=== PATIENT | female | born 1965 | race Caucasian/White ===

== ENCOUNTER → 2021-07-08 11:08 | Outpatient (CLI) | payer OTHER, SELFPAY | PROVIDERS: PCP Nurse Practitioner Primary Care; Visit Provider Family Medicine | DX: Z23 Encounter for immunization (principal) | CPT/HCPCS: 0004A; 91300 ==

== ENCOUNTER → 2021-08-13 15:58 | Outpatient (CLI) | payer OTHER, SELFPAY ==
--- NOTE | 2021-08-13 16:00 | BI_ITS ---
MAMMOGRAPHY - BILATERAL SCREENING REASON FOR EXAM: Female, 55 years old. Routine annual screening examination. PERTINENT HISTORY: Grandmother with breast cancer. Bilateral breast implants. TECHNIQUE: Digital bilateral breast anahi (3D mammographic acquisition) in the CC and MLO projections. 2-D mediolateral oblique (MLO) and craniocaudad (CC) views of both breasts were obtained. CAD: Full Field Digital Mammography with Computer Added Detection was performed. COMPARISON: No comparison mammograms available at this time. If any prior films become available, an addendum to this report can be generated. FINDINGS: Breast Composition: There are scattered areas of fibroglandular density. There are no dominant masses or suspicious calcifications. Bilateral breast implants are seen. No other significant abnormalities are identified. BI/SCRN MAMM (CAD)W/ANAHI BILAT IMPRESSION: Negative screening mammogram. Yearly followup mammogram recommended. (A) ASSESSMENT CATEGORY: BIRADS Category 2: Benign. A letter regarding these results will be sent to the patient by the facility within 30 days. Approximately 10% of breast cancers are not detected by mammography. A normal mammogram should not delay biopsy of a clinically suspicious abnormality. [id number] Electronically Signed: Lawrence Al MD at 10:02 EST , Service support ,
== END ==
PROVIDERS: PCP Nurse Practitioner Primary Care; Visit Provider Internal Medicine
DX: Z12.31 Encounter for screening mammogram for malignant neoplasm of breast (principal)
CPT/HCPCS: 77063; 77067

== ENCOUNTER → 2021-08-26 12:50 | Outpatient (CLI) | payer OTHER, SELFPAY ==
--- NOTE | 2021-08-26 12:52 | EKG12_ITS ---
Test Reason : HTN Blood Pressure : / mmHG Vent. Rate : 085 BPM Atrial Rate : 085 BPM P-R Int : 158 ms QRS Dur : 080 ms QT Int : 372 ms P-R-T Axes : 063 046 033 degrees QTc Int : 442 ms Sinus rhythm with occasional Premature ventricular complexes Septal infarct , age undetermined Abnormal ECG Confirmed by MITRA KRAUSE, RIDGE ([id number]), legal editor BALTAZAR ESPINO ([id number]) on 09/09/2021 10:31:56 AM Referred By: Dania Rubalcava Confirmed By:RIDGE MANRIQUEZ MD
== END ==
PROVIDERS: PCP Internal Medicine; Referring Provider Internal Medicine; Visit Provider Internal Medicine
DX: I10 Essential (primary) hypertension (principal); E78.5 Hyperlipidemia, unspecified
CPT/HCPCS: 93005

== ENCOUNTER 2021-09-28 11:59 | Outpatient (CLI) | payer OTHER, SELFPAY ==
--- NOTE | 2021-09-28 12:51 | STRESSREP ---
Stress Test Report Exercise stress test. 56-year-old lady with a history of abnormal EKG. Medications amlodipine. Stress protocol: Resting EKG demonstrates normal sinus rhythm with a rate of 89 bpm normal intervals are noted resting blood pressure is 152/94 mmHg. The patient exercised according to regular Robby protocol for total duration of 10 minutes completing 1 minute into stage IV of the Robby protocol. The maximum heart rate attained was 166 bpm which was 101% of max impact at heart rate the maximum workload was 13.4 metabolic equivalents. At rest there were no ST or T wave changes noted to suggest ischemia and at peak exercise upsloping ST changes only were noted with did not meet the criteria for ischemia. Occasional premature ventricular complexes were noted. No clinical angina was noted the test was terminated due to attainment of target heart rate. The peak blood pressure was 190/88 mmHg. Conclusion: Exercise stress test with no EKG criteria for ischemia at a high workload. Excellent functional aerobic capacity. No clinical angina noted.
== END 2021-09-28 23:59 | disposition short-term general hospital (02) ==
LOC: CVS 12:02
PROVIDERS: PCP Internal Medicine; Referring Provider Internal Medicine; Visit Provider Internal Medicine
DX: I10 Essential (primary) hypertension (principal); R94.31 Abnormal electrocardiogram [ECG] [EKG]
CPT/HCPCS: 93017

== ENCOUNTER 2021-10-02 07:31 | Day surgery (SDC) | payer OTHER, SELFPAY ==
[2021-10-02] VITALS (7 sets, daily range): BP systolic 94–144; BP diastolic 53–97; PULSE 69–91; RESP 14–16; TEMP 36.4–37.1; O2SAT 100; BMI 24.7
[2021-10-02] MEDS: Lactated Ringers 1,000 ML 15 ML IV (08:19)
--- NOTE | 2021-10-02 08:38 | H&P.OPEN ---
HPI - General HPI Narrative RAMAN MARTINEZ, is a 56 F who presents for screening colonoscopy. The patient is never had a colonoscopy in the past. She reports no family history of colon cancer. She denies any abdominal pain or blood in her stool. [facility], LAT[facility] Medical History (Updated 09/28/21 @ 15:45 by Vanita Cochran) Abnormal EKG Alcohol use Anxiety Colon cancer screening Depression Former smoker Health care maintenance High cholesterol History of anemia History of stress test Hyperlipemia Hyperlipidemia Hypertension Migraines Preventative health care Wears contact lenses Wears glasses Home Medications magnesium 200 mg tablet 200 mg PO DAILY 07/21/21 [History Last Taken Unknown] multivitamin 1 tab PO DAILY 07/21/21 [History Last Taken Unknown] amlodipine 5 mg tablet 5 mg PO DAILY #90 tab 08/25/21 [Rx Last Taken 10/02/21 07:00] calcium carbonate 600 mg calcium (1,500 mg) tablet 600 mg PO DAILY 08/25/21 [History Last Taken Unknown] Allergy/AdvReac Type Severity Reaction Status Date / Time Sulfa (Sulfonamide Allergy Severe sick Verified 08/25/21 13:58 Antibiotics) Family History Other Arthritis Breast cancer Heart disease Hyperlipemia Hypertension Surgical History (Updated 09/28/21 @ 15:40 by Vanita Cochran) History of breast augmentation History of knee surgery History of tubal ligation Hx of LASIK Social History Smoking Status: Former smoker how long ago did patient quit smokin alcohol intake: current alcohol intake frequency: 0-2 drinks per day Alcohol type: wine substance use type: does not use what type of physical activity do you participate in: none Past Medical/Surgical History Planned Operation Planned Operative Procedure/s: COLONOSCOPY Previous Hospitalizations/Surgeries HX Hospitalizations: No Any Problems With Anesthesia: No You/Your Family Experience Fever (Hyperthermia) With Anes: No Cholinesterase deficiency: No Cardiovascular Hx Hypertension: Yes Respiratory Hx Sleep Apnea: No Hx Respiratory Tract Infection/Cold (presently): No Do You Snore Loudly (louder than talking or can be heard): No Do You Often Feel Tired/ Fatigued/ Sleepy Dring Daytime?: No Has Anyone Observed You Stop Breathing During Sleep?: No Result (for STOP score): Negative Smoking Status: Former smoker Neurological Does patient have nerve stimulator: No Reproduction : No Allergies Sulfa (Sulfonamide Antibiotics) Allergy (Severe, Verified 08/25/21 13:58) sick Discharge Is Pt Admitted From a Penitentiary, or a Longterm: No After D/C, Where Do you Plan to Go: Return Home Vital Signs Vital Signs Vital Signs: 10/02/21 08:09 Temperature 98.4 F Temperature Source Temporal Pulse Rate 91 Respiratory Rate 16 Respiratory Pattern Normal Blood Pressure 144/97 H Blood Pressure Mean 112 Blood Pressure Source Monitor Blood Pressure Position Sitting Blood Pressure Location Right Arm Pulse Ox 100 Oxygen Delivery Method Room Air Weight Weight: 156 lb 8.451 oz Body Mass Index (BMI) 24.7 Physical Exam Const alert and oriented x3 Resp normal respiratory effort and normal air movement Cardio regular rate and regular rhythm GI soft to palpation, non-tender and non-distended Assessment & Plan Assessment/Plan (1) Colon cancer screening: PLAN: I explained endoscopy in detail to the patient. I explained the risks including but not limited to stroke or heart attack with anesthesia, perforation of the GI tract, bleeding, infection. I explained that any of these could necessitate further emergency surgery. The patient understands and all questions were answered sufficiently. The patient wishes to proceed with procedure. Gavin Giles MD Pager: [facility] [address] [place] [address], [address] [place] [address] Office: Surgery Risks - Colonoscopy Risks Include but are not Limited To: Risks include but are not limited to: Bleeding, perforation requiring further surgery, inability to complete colonoscopy requiring barium enema.
--- NOTE | 2021-10-02 09:08 | OP.COLON_ITS ---
Patient Name: Chayo Powell Procedure Date: 10/02/2021 8:41 AM Date of : 1965 Age: 56 Procedure: Colonoscopy Indications: Screening for colorectal malignant neoplasm Providers: Gavin Giles MD Referring MD: Dania Rubalcava MD Medicines: Monitored Anesthesia Care Patient Profile: This is a 56 year old female. Refer to note in patient chart for documentation of history and physical. Last Colonoscopy: none. The patient's first colonoscopy is today. Complications: No immediate complications. Procedure: Pre-Anesthesia Assessment: - Prior to the procedure, a History and Physical was performed, and patient medications and allergies were reviewed. The patient's tolerance of previous anesthesia was also reviewed. The risks and benefits of the procedure and the sedation options and risks were discussed with the patient. All questions were answered, and informed consent was obtained. Prior Anticoagulants: The patient has taken no previous anticoagulant or antiplatelet agents. After reviewing the risks and benefits, the patient was deemed in satisfactory condition to undergo the procedure. After I obtained informed consent, the scope was passed under direct vision. Throughout the procedure, the patient's blood pressure, pulse, and oxygen saturations were monitored continuously. The Colonoscope was introduced through the anus and advanced to the cecum, identified by appendiceal orifice and ileocecal valve. The colonoscopy was performed without difficulty. The patient tolerated the procedure well. The quality of the bowel preparation was good. Scope In: 8:52:51 AM Scope Withdrawal Time 0 hours 6 minutes 5 seconds Scope Out: 9:05:03 AM Total Procedure Duration Time 0 hours 12 minutes 12 seconds Findings: The entire examined colon appeared normal on direct and retroflexion views. Impression: - The entire examined colon is normal on direct and retroflexion views. - No specimens collected. Recommendation: - Discharge patient to home. - Resume previous diet. - Continue present medications. - Repeat colonoscopy in 10 years for screening purposes. Procedure Code(s): --- Professional --- 04706, Colonoscopy, flexible; diagnostic, including collection of specimen(s) by brushing or washing, when performed (separate procedure) Diagnosis Code(s): --- Professional --- Z12.11, Encounter for screening for malignant neoplasm of colon CPT copyright 2017 [employer]. All rights reserved. The codes documented in this report are preliminary and upon development coach review may be revised to meet current compliance requirements. Gavin Giles MD 10/02/2021 9:08:24 AM This report has been signed electronically. Number of Addenda: 0 Note Initiated On: 10/02/2021 8:41 AM
--- NOTE | 2021-10-02 09:09 | OP.CCLET_ITS ---
10/02/2021 Dania Rubalcava MD [address] [place] [address] [place] [address] Re : Colonoscopy procedure for Chayo Powell Dear Dr. Rubalcava This procedure was performed on Saturday, October 02, 2021. My impressions and recommendations are as follows: Impressions : - The entire examined colon is normal on direct and retroflexion views. - No specimens collected. Recommendations : - Discharge patient to home. - Resume previous diet. - Continue present medications. - Repeat colonoscopy in 10 years for screening purposes. My findings are described in the full procedure note, which is enclosed. If I can be of further assistance, please feel free to contact me at Doctor phone number(s): , Work: . Sincerely, Gavin Giles MD 10/02/2021 9:08:24 AM This report has been signed electronically.
== END 2021-10-02 23:59 | disposition home or self-care (01) ==
LOC: EN 07:32 → AC 07:34
PROVIDERS: PCP Internal Medicine; Referring Provider Internal Medicine; Visit Provider Surgery
PROC: 0DJD8ZZ Inspection of Lower Intestinal Tract, Via Natural or Artificial Opening Endoscopic (ICD-10-PCS; CPT 45378; principal; 2021-10-02 08:25)
DX: Z12.11 Encounter for screening for malignant neoplasm of colon (principal); I10 Essential (primary) hypertension; E78.00 Pure hypercholesterolemia, unspecified; E78.5 Hyperlipidemia, unspecified; Z87.891 Personal history of nicotine dependence
CPT/HCPCS: 45378; J7120; J2405

== ENCOUNTER 2021-11-16 16:44 | Outpatient (CLI) | payer OTHER, SELFPAY ==
[2021-11-22 12:42] LABS: HPV APTIMA, High Risk Negative (Negative)
== END 2021-11-16 23:59 | disposition home or self-care (01) ==
LOC: LABSPEC 16:46
PROVIDERS: PCP Internal Medicine; Referring Provider Nurse Practitioner Women's Health; Visit Provider Nurse Practitioner Women's Health
DX: Z78.0 Asymptomatic menopausal state (principal); Z12.4 Encounter for screening for malignant neoplasm of cervix
CPT/HCPCS: 87624; 88175; G0145

== ENCOUNTER → 2021-11-18 08:03 | Outpatient (CLI) | payer OTHER, SELFPAY ==
--- NOTE | 2021-11-18 08:05 | ECHOD_ITS ---
Reason For Study: ABN EKG, HTN, TACHYCARDIA Procedure This was a 2D Doppler, Color Flow transthoracic echocardiogram. Exam performed in department. Left Ventricle Normal LV size. Left ventricular systolic function is normal. The estimated ejection fraction is 64 %. Stage 1 diastolic dysfunction. No regional wall motion abnormalities noted. Right Ventricle Normal RV size. Normal systolic function. Atria Normal left atrium. Normal right atrium. Mitral Valve Normal mitral valve. Tricuspid Valve Normal tricuspid valve. Mild tricuspid valve insufficiency. Pulmonary artery systolic pressure is 30 mmHg. Aortic Valve Normal aortic valve. Trisinus/trileaflet aortic valve. Pulmonic Valve Normal pulmonic valve. Great Vessels Normal aortic root. Pericardium/Pleural No pericardial effusion. MMode/2D Measurements & Calculations LVIDd: 4.0 cm IVSd: 0.89 cm Ao root diam: 3.1 cm LVIDs: 2.7 cm LVPWd: 1.00 cm RVDd: 3.1 cm FS: 33.4 % LAV(MOD-bp): 51.4 ml LA A4 area: 15.3 cm2 LA dimension(2D): 3.5 cm LAV(MOD-bp) Indexed: 28.1 ml/m2 LAV(MOD-sp2): 48.6 ml LAV(MOD-sp4): 43.5 ml RA A4 area: 15.6 cm2 Time Measurements MV dec time: 0.22 sec Doppler Measurements & Calculations MV E max noah: 49.2 cm/sec Lat Peak E' Noah: 6.7 cm/sec Med Peak E' Noah: 5.4 cm/sec MV A max noah: 64.6 cm/sec E/E' lat: 7.3 E/E' med: 9.2 MV E/A: 0.76 Ao V2 max: 104.7 cm/sec LV V1 max: 84.7 cm/sec PA V2 max: 74.9 cm/sec Ao max P.4 mmHg LV V1 max P.9 mmHg TR max noah: 253.6 cm/sec TR max P.7 mmHg ECHO/Echo Complete Interpretation Summary Normal LV size. Left ventricular systolic function is normal. The estimated ejection fraction is 64 %. Stage 1 diastolic dysfunction. Mild tricuspid valve insufficiency. Pulmonary artery systolic pressure is 30 mmHg. Ordering Physician: ZA DELANEY Referring Physician: Dania Rubalcava Performed By: Madalyn Blair RDCS, RVT
== END ==
PROVIDERS: PCP Internal Medicine
DX: R94.31 Abnormal electrocardiogram [ECG] [EKG] (principal); R00.0 Tachycardia, unspecified; I10 Essential (primary) hypertension
CPT/HCPCS: 93306

== ENCOUNTER → 2022-02-19 | Outpatient (CLI) | payer OTHER, SELFPAY ==
[2022-02-19 15:46] LABS: Vitamin B12 272 pg/mL (211-911); Vitamin D,25 Hydroxy 46.5 ng/mL
[2022-02-19 16:00] LABS: T4 Free Direct 0.82 ng/dL (0.76-1.46)
== END | disposition home or self-care (01) ==
LOC: BIMLAB 13:39
PROVIDERS: PCP Internal Medicine; Referring Provider Internal Medicine; Visit Provider Internal Medicine
DX: F41.9 Anxiety disorder, unspecified (principal); F32.A Depression, unspecified
CPT/HCPCS: 36415; 82306; 82607; 84439; 84443

== ENCOUNTER 2022-06-23 14:00 | Outpatient (RCR) | payer OTHER, SELFPAY ==
--- NOTE | 2022-05-31 08:52 | HP.PTEVAL_ITS ---
Patient's Visit Information RAMAN MARTINEZ is a 56 year old F referred to Physical Therapy by Dr. Dania Rubalcava MD with a diagnosis of piriformis suyndrome, sciatica. Date of Evaluation: 05/31/22 Physical Therapist: Phoenix Gates, DPT, OCS, CSCS - Visit Plan Frequency: 3x /Week Duration: 4-6 Weeks Plan: 3x/week for 3-4 week... 1. rollout and stretch quads into psoas. 2. NS based core strength mat to gym NS functional ex. 3. yoga flow rosa elena pose, down dog, up dog include cat /cow. TENS with MH if needed. - Subjective I have been having problems in LB for months now. It is intermittently up and down. She woke up one day in [place] in meetings all day and got worse and worse. Tried yoga which helped. Tried massage which made it worse. Pain is R posterior hip and lateral leg to petty. Also R side of low back. Has not had x rays yet but has order. Pain in last two weeks is constant 1-2/10 and can get up to 7/10 yesterday after a lot of walking tuesday at [employer] homecoming. Lots of sitting makes her worse. Getting up in am can be problematic if she doesn't stretch in bed. No numbness or tingling. No bowel or bladder problems. Sleep is OK for the most part. Is on alleve daily. 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 Hobbies include walking which she has had to stop. Read is OK - Pain R LB and leg Pain Intensity (Out of 10): 1 Pain Intensity Range: 1, 7 - Objective Walks normal into PT and I, trasnfers I without pain increase. Posture is flat lordosis and forward head, kyphosis in t/s. Tender to touch R trochanter and piriformis area. LB AROM ext max limited and painful, B SB are OK, flexion is painful R hip. + SLR adn slump SLR. flexibility pirirformis and ITB R slight deficits vs L. Hip flexors tight B. reflexes 2/3 patella and achilles. Sensatin LE WNL to gross light touch. Strength LE 4 in hips and 4+ knees and ankles without myotomal problems. repeated motions 1/10 baseline back and hip. PPU increase pain in LE after. ailin: Better. - Balance/Special Test Scores Lower Extremity Functional Score: 51 - Goals Goal 1:: Painfree at rest. Goal Time Frame: 4-6 Weeks Goal 2:: Pt feel 90% better adn 1/10 pain at worst Goal Time Frame: 4-6 Weeks Goal 3:: Able to ambulate 2 miles and work without increased pain Goal Time Frame: 4-6 Weeks Goal 4:: I management of condition Goal Time Frame: 4-6 Weeks - Rehabilitation Potential Physical Therapy Diagnosis: Degenerative changes leading to back and leg pain. Rehabilitation Potential: Fair - Anticipated Interventions Patient/Client Instruction: Educate patient on: Condition, Plan of Care For the Purpose of:: To decrease pain, To increase ROM, To improve muscle performance and motor function, To increase tolerance to activity/condition/position, To improve ability of physical actions for home/community/work/leisure Therapeutic Exercise to Include: Strength training, Flexibilty training, Passive ROM, Active ROM For the Purpose of:: To decrease pain, To increase ROM, To increase tolerance to activity/condition/position, To improve ability of physical actions for home/community/work/leisure, To improve gait and locomotor functions Manual Therapy Techniques to Include: Mobilization, Passive ROM, Soft tissue mobilization For the Purpose of:: To decrease pain, To increase ROM, To improve muscle performance and motor function TENS: Yes Thermo therapy (hot pack): Yes For the Purpose of:: To decrease pain Thank you for the opportunity to evaluate your patient. For Medicare and Medicare HMO plans, please review the plan of care and approve it. It will need to be FAXED BACK to us at [phone] for Medicare purposes. For Medicare only, by signing this I certify the plan of care. Please let me know if there are questions or concerns regarding this plan of care. Physician Signature: Date:
--- NOTE | 2022-07-30 13:49 | HP.PTDCNRP_ITS ---
RAMAN MARTINEZ was seen in my office for initial evaluation on 05/31/22. The following Plan of Care was established for this patient: Initial Frequency: 3x /Week Initial Duration: 4-6 Weeks Patient/Client Instruction: Educate patient on: Condition, Plan of Care For the Purpose of:: To decrease pain, To increase ROM, To improve muscle performance and motor function, To increase tolerance to activity/condition/position, To improve ability of physical actions for home/community/work/leisure Therapeutic Exercise to Include: Strength training, Flexibilty training, Passive ROM, Active ROM For the Purpose of:: To decrease pain, To increase ROM, To increase tolerance to activity/condition/position, To improve ability of physical actions for home/community/work/leisure, To improve gait and locomotor functions Manual Therapy Techniques to Include: Mobilization, Passive ROM, Soft tissue mobilization For the Purpose of:: To decrease pain, To increase ROM, To improve muscle p erformance and motor function TENS: Yes Thermo therapy (hot pack): Yes For the Purpose of:: To decrease pain This patient was last seen in our office 06/23/22. Pertinent comments regarding their Physical therapy will appear below: Pt seen 9 visits of POC and was 85% better overall. She was to go onvacation a nd f/u for recheck after vacation but cancelled that visit as she was doing well. i will discontinue her from my care at this time. At this point I will be discontinuing this patient from physical therapy. I would be happy to see this patient again in the future if found appropriate by the physician. Thank you! Phoenix Gates, DPT, OCS, CSCS Balance/Gait/Functional tests - Balance/Special Test Scores Lower Extremity Functional Score: 71
== END 2022-06-23 19:00 | disposition home or self-care (01) ==
LOC: PT 14:00
PROVIDERS: PCP Internal Medicine; Referring Provider Internal Medicine; Visit Provider Internal Medicine
DX: G57.01 Lesion of sciatic nerve, right lower limb
CPT/HCPCS: 97014; 97110; 97161; G0283

== ENCOUNTER → 2023-03-07 | Outpatient (CLI) | payer OTHER, SELFPAY ==
[2023-03-07 12:35] LABS: Absolute Lymphocyte Count 0.91 X10^3/uL (0.83-4.51); Absolute Neutrophil Count 1.6 X10^3/uL (2.0-7.7); Basophil# 0.05 X10^3/uL; Basophil% 1.6 % (0-1); Eosinophil# 0.13 X10^3/uL; Eosinophils% 4.2 % (0-5); Hematocrit 35.5 % (37-47); Hemoglobin 12.4 g/dL (12.0-15.0); Lymphocyte # 0.91 X10^3/ul (0.83-4.51); Lymphocyte % 29.7 % (19-41); Mean Corp Hgb Conc 34.9 g/dL (32-36); Mean Corpuscular Hgb 32.9 pg (27.0-32.0); Mean Corpuscular Volume 94.2 fL (81-99); Mean Platelet Vol. 9.6 fl (6.2-12.0); Monocyte# 0.33 X10^3/uL; Monocyte% 10.8 % (0-10); NRBC Flagged by Analyzer 0 % (0-5); Neutrophil # 1.64 X10^3/uL (2.7-7.7); Neutrophil % 53.7 % (47-70); Platelet Count 299 K/mm3 (150-450); RBC Distribution Width SD 41.3 fl (35.1-43.9); Red Blood Count 3.77 M/mm3 (4.2-5.4); White Blood Count 3.1 K/mm3 (4.4-11.0)
[2023-03-07 12:56] LABS: AST(SGOT) 24 U/L (15-37); Alanine Aminotransfer ALT/SGPT 41 U/L (13-56); Albumin, Serum 4.1 g/dL (3.2-5.0); Alkaline Phosphatase 108 U/L (45-117); Anion Gap 6 (5-15); BUN 9 mg/dL (7-18); BUN/Creat Ratio 11.9 RATIO (10-20); Calcium,Total 9.2 mg/dL (8.5-10.1); Chloride 104 mmol/L (98-107); Cholesterol 235 mg/dL (200); Creatinine, Serum 0.75 mg/dL (0.55-1.02); EST Glomerular Filtration Rate 84 mL/min (>60); Est Glom Filt Rate - Afr Amer 101 mL/min (>60); Glucose 89 mg/dL (74-106); High Density Lipoprotein 58 mg/dL; Protein, Total 8.1 g/dL (6.4-8.2); Sodium Level 136 mmol/L (136-145); Triglycerides 179 mg/dL; Very Low Density Lipoprotein 36 mg/dL (5-40)
== END | disposition home or self-care (01) ==
LOC: BIMLAB 08:54
PROVIDERS: PCP Internal Medicine; Referring Provider Internal Medicine; Visit Provider Internal Medicine
DX: I10 Essential (primary) hypertension (principal)
CPT/HCPCS: 36415; 80053; 80061; 85025

== ENCOUNTER → 2023-04-07 | Outpatient (CLI) | payer OTHER, SELFPAY ==
[2023-04-07 12:22] LABS: Absolute Lymphocyte Count 0.88 X10^3/uL (0.83-4.51); Absolute Neutrophil Count 2.2 X10^3/uL (2.0-7.7); Basophil# 0.04 X10^3/uL; Basophil% 1.1 % (0-1); Eosinophil# 0.13 X10^3/uL; Eosinophils% 3.6 % (0-5); Hemoglobin 12.5 g/dL (12.0-15.0); Lymphocyte # 0.88 X10^3/ul (0.83-4.51); Mean Corp Hgb Conc 33.8 g/dL (32-36); Mean Corpuscular Hgb 32.6 pg (27.0-32.0); Mean Corpuscular Volume 96.4 fL (81-99); Mean Platelet Vol. 9.7 fl (6.2-12.0); Monocyte# 0.36 X10^3/uL; Monocyte% 9.8 % (0-10); NRBC Flagged by Analyzer 0 % (0-5); Neutrophil # 2.24 X10^3/uL (2.7-7.7); Neutrophil % 61.2 % (47-70); Platelet Count 339 K/mm3 (150-450); RBC Distribution Width SD 42.5 fl (35.1-43.9); Red Blood Count 3.84 M/mm3 (4.2-5.4); White Blood Count 3.7 K/mm3 (4.4-11.0)
[2023-04-07 12:35] LABS: Cholesterol 233 mg/dL (200); High Density Lipoprotein 57 mg/dL; Triglycerides 163 mg/dL; Very Low Density Lipoprotein 33 mg/dL (5-40)
== END | disposition home or self-care (01) ==
LOC: BIMLAB 08:28
PROVIDERS: PCP Internal Medicine; Referring Provider Internal Medicine; Visit Provider Internal Medicine
DX: R79.89 Other specified abnormal findings of blood chemistry (principal); E78.5 Hyperlipidemia, unspecified
CPT/HCPCS: 36415; 80061; 85025

== ENCOUNTER → 2023-08-30 | Outpatient (CLI) | payer OTHER, SELFPAY ==
--- NOTE | 2023-08-30 10:42 | RAD_ITS ---
STUDY: X-RAY - PELVIS AND LEFT HIP REASON FOR EXAM: Female, 57 years old. Hip pain. TECHNIQUE: 3 views of the pelvis and left hip. COMPARISON: None. FINDINGS: There is a non-specific bowel gas pattern. Normal visualized soft tissue structures. Normal bilateral iliac wings, sacroiliac joints and visualized sacrum. Normal bilateral superior and inferior pubic rami. Normal pubic symphysis. Normal bilateral ischial tuberosities. Normal visualized femoral head. There is mild osteoarthritic spur formation of the acetabular rims bilaterally. There is moderate articular joint space narrowing of the hip joints bilaterally. There is no demonstrated acute fracture. 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 No demonstrated acute fracture. Electronically Signed: Willie Garcia MD at 11:09 EST ,
== END | disposition home or self-care (01) ==
LOC: MTRAD 10:42
PROVIDERS: PCP Internal Medicine; Referring Provider Physician Assistant; Visit Provider Physician Assistant
DX: M25.552 Pain in left hip (principal); M70.62 Trochanteric bursitis, left hip
CPT/HCPCS: 73502

== ENCOUNTER 2023-08-31 16:30 | Outpatient (RCR) | payer OTHER, SELFPAY ==
--- NOTE | 2023-08-03 17:56 | HP.PTEVAL ---
Patient's Visit Information Visit Information Visit Information: RAMAN MARTINEZ is a 57 year old F referred to Physical Therapy by ERAN Gant with a diagnosis of L Trochanteric bursitis. Date of Evaluation: 08/03/23 Physical Therapist: SYDNEY Jaime Visit Plan Frequency: 2x /Week Duration: 2 Months Plan: Pt to get x-ray of L hip 2X/ week for 8 weeks for stretching of the L hip flexor/IT band, strengthening of L hip, especially glutes with gait training and HEP HEP: oskar stretch on the L with and without the strap Subjective Subjective: She has a weird catch on the front of the L hip and it causes her to limp a little and then it can cause back pain. She hikes a lot. She goes to the gym. Walking seems to be what hurts a lot. She notices more of an even plane and she does walk fast. She has tired to stretch her hip flexor and does not seem to the problem. Her IT band is tight and lateral calf is tight. She has back pain. She hurts in her leg and then it hurts in her back. She has no N&T and no weakness in the legs. Standing and cooking all day on Sundays she notices the pain. Pain L hip pain: Pain Intensity (Out of 10): 3 Pain Intensity Range: 7 Back pain: Pain Intensity (Out of 10): 0 Objective Objective: Gait: Walks with decrease stance time on the L LE and decrease stride length/ hip ext . Walks with decrease overall coordination on the L and decrease hip ext with gait on the L. Stairs: when ascending the stairs with the L leg she tends to get off of it quickly and lists more to the R when ascending the stairs LE MMT: R hip flex 15.1 and L 14.6 R knee ext 26 and L 25.4 R knee flex 13.4 and L 13.8 R hip abd 14.6 and L 17.2 R hip ext 13.5 and L 13.6 Decrease L hip IR with increase pain Tight hip flexor B but worse on the L compared to the R After manually stretching on the L doing the Oskar stretch 30 sec X 3 she was able to take bigger steps without feeling as much discomfort Trunk AROM: flexion 100%, ext 50, SB 75%, ROT B 75% Able to walk on heels and toes without weakness Tight gastroc B Balance/Special Test Scores Lower Extremity Functional Score: 60 Goals Goal 1:: I HEP Goal Time Frame: 6-8 Weeks Goal 2:: Be able to walk with longer stride length without having pain Goal Time Frame: 6-8 Weeks Goal 3:: Restore normal L hip flexor muscle length Goal Time Frame: 6-8 Weeks Goal 4:: Decrease L overall hip pain with walking on a flat surface and with standing and cooking all day Goal Time Frame: 6-8 Weeks Rehabilitation Potential Rehabilitation Potential: Good Anticipated Interventions Text: Thank you for the opportunity to evaluate your patient. For Medicare and Medicare HMO plans, please review the plan of care and approve it. It will need to be FAXED BACK to us at [phone] for Medicare purposes. For Medicare only, by signing this I certify the plan of care. Please let me know if there are questions or concerns regarding this plan of care. Physician Signature: Date:
--- NOTE | 2023-08-31 17:03 | HP.PTDCSUM ---
Discharge Summary D/C summary: It has been my pleasure to treat RAMAN MARTINEZ referred by ERAN Gant, with the diagnosis of L Trochanteric bursitis for a total of 8 visit(s). Discharge Date: 08/31/23 Please see the following information for a summary of their discharge status. Subjective Subjective: She feels like she is better. She had an x-ray and it showed some OA. When it does hurt she ices it and she is good. Will continue with HEP and PF membership. Pain L hip pain: Pain Intensity (Out of 10): 1 Back pain: Pain Intensity (Out of 10): 0 Overall Improvement % Improvement: 40 Objective Objective/Function: Pt had full understanding of pictures of HEP and how to progress as exercises get too easy Goals Goal 1:: I HEP Goal Progress: Goal Met Goal 2:: Be able to walk with longer stride length without having pain Goal Progress: Goal Met Goal 3:: Restore normal L hip flexor muscle length Goal Progress: Goal Met Goal 4:: Decrease L overall hip pain with walking on a flat surface and with standing and cooking all day Goal Progress: Goal Met Plan Plan: DC PT to HEP D/C Information Discharge Comments: DC PT to HEP d/c sentence: If there are questions or concerns regarding this patient's physical therapy, please feel free to call me at [phone]. Thank you for the referral of this patient. Sincerely, Erlinda Reeder, MPT Balance/Gait/Functional tests Balance/Special Test Scores Lower Extremity Functional Score: 68 Improvement % Improvement: 40
== END 2023-08-31 19:00 | disposition home or self-care (01) ==
LOC: PT 16:30
PROVIDERS: PCP Internal Medicine; Visit Provider Physician Assistant
DX: M70.62 Trochanteric bursitis, left hip (principal)
CPT/HCPCS: 97110; 97161; 97530

== ENCOUNTER → 2023-09-01 | Outpatient (CLI) | payer OTHER, SELFPAY ==
--- NOTE | 2023-09-01 15:25 | BI_ITS ---
MAMMOGRAPHY - BILATERAL SCREENING REASON FOR EXAM: Female, 57 years old. Routine annual screening examination. PERTINENT HISTORY: Grandmother with breast cancer. Bilateral breast implants. TECHNIQUE: Digital bilateral breast anahi (3D mammographic acquisition) in the CC and MLO projections. 2-D mediolateral oblique (MLO) and craniocaudad (CC) views of both breasts were obtained. CAD: Full Field Digital Mammography with Computer Added Detection was performed. COMPARISON: Comparison is made with prior study dated August 13, 2021. FINDINGS: Breast Composition: There are scattered areas of fibroglandular density. There are no dominant masses or suspicious calcifications. Stable appearance of the bilateral breast implants. No other significant abnormalities are identified. There has been no significant change since the prior study. BI/SCRN MAMM (CAD)W/ANAHI BILAT IMPRESSION: Stable bilateral screening mammogram. Yearly follow-up mammogram recommended. (A) ASSESSMENT CATEGORY: BIRADS Category 2: Benign. A letter regarding these results will be sent to the patient by the facility within 30 days. Approximately 10% of breast cancers are not detected by mammography. A normal mammogram should not delay biopsy of a clinically suspicious abnormality. [id number] Electronically Signed: Lawrence Al MD at 14:41 EST ,
--- OUTSIDE RECORDS SUMMARY | 2023-09-01 17:49 | XMS RPT_ITS | CCD ---
Author Name Unknown Address [address] [facility] [address] [place] [address] Organization [facility] Care Team Providers Care Oil Scout Name Role Phone Unavailable Primary Care Provider UnavailELOISA Gasca Referring Unavailable LISA GRAY Attending Unavailable LISA GRAY Attending Unavailable Unavailable Primary Care Provider UnavailDania Lenz MD Primary Care Provider MARSHALL PRIEST Referring Unavailable OLEGHE, EFEWONGBE B Primary Care Unavailable MARSHALL PRIEST Attending Unavailable AMBERLYGHE, EFEWONGBE B Primary Care Unavailable MARSHALL PRIEST Attending Unavailable MARSHALL PRIEST Referring Unavailable RUTHY MORENO Admitting Unavailable RUTHY MORENO Attending Unavailable OLEGHE, EFEWONGBE B Primary Care Unavailable OLEGHE, EFEWONGBE B Primary Care Unavailable RUTHY MORENO Referring Unavailable RUTHY MORENO Attending Unavailable OLEGHE, EFEWONGBE B Referring Unavailable OLEGHE, EFEWONGBE B Primary Care Unavailable SELF, SELF Referring Unavailable OLEGHE, EFEWONGBE B Primary Care Unavailable SELF, SELF Referring Unavailable OLEGHE, EFEWONGBE B Primary Care Unavailable MARSHALL PRIEST Attending Unavailable Allergies Allergy Classification Reported Allergen(s) Allergy Type Date of Onset Reaction(s) Facility (8 sources) Sulfonamides (Antibiotic); Translations: [SULFA (SULFONAMIDE ANTIBIOTICS)] Drug Allergy 7 GI Upset, Syncope [facility] Medications Current Medications Medication Drug Class(es) Dates Sig (Normalized) Sig (Original) Calcium Carbonate (4 sources) Calcium Carbonat e (CALCIUM-CARB 600 PO) Take by mouth daily. 0 Active ibuprofen 200 mg oral tablet (4 sources) Nonsteroidal Anti-inflammatory Drug take 2 tablets by mouth every six hours as needed ibuprofen (ADVIL) 200 MG Tab tablet Take 2 tablets by mouth every 6 hours as needed. 0 Active magnesium oxide 200 mg oral tablet (4 sources) Magnesium Oxide (Mag-Oxide) 200 MG tablet Take by mouth daily. 0 Active Multiple Vitamin (multivitamin) capsule (4 sources) take 1 capsule by mouth once daily Multiple Vitamin (multivitamin) capsule Take 1 capsule by mouth daily. 0 Active nitrofurantoin, macrocrystals 25 mg / nitrofurantoin, monohydrate 75 mg oral capsule (2 sources) Nitrofuran Antibacterial Start: 06-13-2022 End: 06-18-2022 take 1 capsule by mouth twice daily nitrofurantoin monohydrate and macrocrystal (MACROBID) 100 mg capsule Indications: Urinary tract infection without hematuria, site unspecified Take 1 capsule by mouth twice daily for 5 days. 10 capsule 0 06/13/2022 06/18/2022 Active Completed/Discontinued Medications Medication Drug Class(es) Dates Sig (Normalized) Sig (Original) amLODIPine 5 mg oral tablet (7 sources) Dihydropyridine Calcium Channel Darrius Start: 05-24-2022 take 1.5 tablets by mouth once daily amLODIPine (NORVASC) 5 mg tablet TAKE 1.5 TABLETS BY MOUTH EVERY DAY 0 05/24/2022 Active Problems Problem Classification Problem Date Documented Da te Episodic/Chronic Acquired foot deformities (1 source) Toe joint rigid; Translations: [Hallux rigidus, right foot] 04-11-2023 Chronic Acquired foot deformities (6 sources) Hallux valgus; Translations: [Bunion of right foot] Onset: 04-11-2023 04-11-2023 Episodic Anxiety disorders (3 sources) Anxiety disorder; Translations: [Anxiety disorder, unspecified] Onset: 01-20-2022 06-14-2022 Chronic Disorders of lipid metabolism (3 sources) Hyperlipidemia; Translations: [Hyperlipidemia, unspecified] Onset: 07-28-2021 06-14-2022 Chronic Essential hypertension (3 sources) Essential hypertension; Translations: [Essential (primary) hypertension] Onset: 11-03-2021 06-14-2022 Chronic Mood disorders (3 sources) Depressive disorder; Translations: [Depression, unspecified] Onset: 01-20-2022 06-14-2022 Chronic Other connective tissue disease (1 source) Pain in both feet; Translations: [Pain in right foot] 04-11-2023 Episodic Other diseases of bladder and urethra (1 source) Urethral intrinsic sphincter deficiency; Translations: [Intrinsic sphincter deficiency (ISD)] 03-29-2023 Episodic Other diseases of bladder and urethra (2 sources) Intrinsic sphincter deficiency (ISD); Translations: [Intrinsic sphincter deficiency (ISD)] Onset: 04-26-2023 Episodic Other lower respiratory disease (1 source) Pleurodynia; Translations: [Rib pain] Onset: 12-25-2022 Episodic Unclassified (1 source) APPOINTMENT CANCELLED Urinary tract infections (1 source) Urinary tract infectious disease; Translations: [Urinary tract infection, site not specified] Episodic Results Test Name Value Interpretation Reference Range Facil ity Vital Signs Date Time Vital Sign Value Performing Clinician Silas schreiber 03-29-2023 10:40-0400 Body height 167.6 cm Nida MEJIA Work Phone: [facility] 03-29-2023 10:40-0400 Body mass index (BMI) [Ratio] 25.99 kg/m2 Nida MEJIA Work Phone: [facility] 03-29-2023 10:40-0400 Body weight 73.03 kg Nida MEJIA Work Phone: [facility] 03-29-2023 10:40-0400 Diastolic blood pressure 96 mm[Hg] Nida MEJIA Work Phone: [facility] 03-29-2023 10:40-0400 Heart rate 90 /min Nida MEJIA Work Phone: [facility] 03-29-2023 10:40-0400 SaO2% (BldA) [Mass fraction] 99 % Nida MEJIA Work Phone: [facility] 03-29-2023 10:40-0400 Systolic blood pressure 150 mm[Hg] Nida MEJIA Work Phone: [facility] Encounters Encounter Date Encounter Type Care Provider Facility Start: 05-18-2023 ambulatory RUTHY MORENO Facil ity:[facility] Start: 04-26-2023 End: 04-26-2023 ambulatory RUTHY MORENO Facility:[facility] Start: 04-11-2023 Encounter for other preprocedural examination EFEWONGBE B RODNEYE Facility:[facility] Start: 04-11-2023 ambulatory DANIA RUBALCAVA Faci lity:[facility] Start: 04-11-2023 End: 04-11-2023 Office outpatient new 30 minutes Marshall Lee Labmaricruzo DPM Work Phone: [facility] [place] Procedures Date Procedure Procedure Detail Performing Clinician Start: 04-11-2023 End: 04-11-2023 Radex foot complete minimum 3 views Marshall Lee Labroo DPM Work Phone: Plan of Treatment Date Care Activity Detail Author Start: 04-29-2023 Influenza vaccination INFLUENZA VACC INE (#1) [facility] Start: 04-26-2023 End: 04-26-2023 Admission to same day surgery center 04/26/2023 8:00 AM EDT - 04/26/2023 8:45 AM EDT Surgery [facility] [address] [place] [address] Ruthy Moreno MD [address] [place] [address] INJECTION BLADDER NECK/URETHRA SUBMUCOSAL IMPLANT MATERIAL ENDOSCOPIC [facility] Immunizations Immunization Date Immunization Notes Care Provider Fa cility 06-19-2022 influenza virus vaccine, unspecified formulation Nida PATELBEAMER HELPER Work Phone: [facility] Payers Date Payer Category Payer Unknown [id number] 2016 Unknown [id number] 1964 Unknown [id number] 2.16. [id number] 1964 Unknown [id number] 2.16. [id number] 1964 Unknown [id number] 2.16. [id number] 1964 Unknown [id number] 2.. [id number] 1964 Unknown [id number] 2.16. [id number] 1964 Unknown [id number] 2.16. [id number] 1964 Unknown [id number] 2.16. [id number] Social History Date Type Detail Facility Start: 06-05-2018 End: 12-25-2022 Tobacco smoking status DCIS Never smoked tobacco [facility] Start: 06-05-2018 End: 03-29-2023 Tobacco use and exposure Smokeless tobacco non-user [facility] Start: 1965 Sex Assigned At Not on file [facility] Start: 03-29-2023 [facility] Start: 03-31-1983 End: 03-31-1989 History of tobacco use Current smoker [facility] Start: 03-31-1983 End: 03-31-1989 History of tobacco use Cigarette Smoker [facility] Start: 03-29-2023 End: 04-11-2023 Cigarettes smoked current (pack per day) - Reported 0.8 [facility] Start: 03-29-2023 End: 04-11-2023 Alcohol intake Current drinker of alcohol (finding) [facility] Start: 03-29-2023 End: 04-11-2023 Tobacco use panel [facility] Start: 10-26-2021 Alcohol Comment 0-2 drinks qd [facility] Start: 03-31-2018 Gender identity Identifies as female gender (finding) [facility] Clinical Notes 06-13-2022 to 04-11-2023 Marshall Priest, ROSANNA - 04/11/2023 8:15 AM Suzy Brar, PRABHA-NJ - 03/29/2023 11:00 AM EDTTelephone Encounter - Rozina Ventura - 12/25/2022 11:44 AM EDTPatient Instructions Note Date & Type Note Facility 04-11-2023 History of Present illness Narrative CHIEF COMPLAINT: Chief Complaint Patient presents with Left Foot - New Patient Pt c/o b/l bunions, pt would like to discuss all treatment options. L worse than R, can be painful at times. Right Foot - New Patient HPI: Chayo Martinez is a 57 y.o. female who presents with complaint of bilateral 1st MTPJ pain, L>R. States this has been a chronic issue for her over the last 6-7 years. Describes pain as achy. Pain aggravated with activity, relieved with rest. Has treated with good shoes. Denies any trauma or inciting event. 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 No other complaints. MEDICAL HISTORY: Past Medical History: Diagnosis Date Anemia HLD (hyperlipidemia) HTN (hypertension) Migraine Past Surgical History: Procedure Laterality Date AUGMENTATION BREAST KNEE SURGERY Right x2 REFRACTIVE SURGERY TUBAL LIGATION Current Outpatient Medications: amLODIPine 5 MG tablet, Take 2 tablets by mouth daily., Disp: , Rfl: Calcium Carbonate (CALCIUM-CARB 600 PO), Take by mouth daily., Disp: , Rfl: ibuprofen (ADVIL) 200 MG Tab tablet, Take 2 tablets by mouth every 6 hours as needed., Disp: , Rfl: Magnesium Oxide (Mag-Oxide) 200 MG tablet, Take by mouth daily., Disp: , Rfl: Multiple Vitamin (multivitamin) capsule, Take 1 capsule by mouth daily., Disp: , Rfl: Sertraline 50 MG tablet, Take 1 tablet by mouth daily., Disp: , Rfl: Allergies Allergen Reactions Sulfa Antibiotics Syncope Social History Socioeconomic History Marital status: Spouse name: Not on file Number of children: Not on file Years of education: Not on file Highest education level: Not on file Occupational History Not on file Tobacco Use Smoking status: Former Packs/day: 0.75 Years: 8.00 Total pack years: 6.00 Types: Cigarettes Start date: 03/31/1983 Quit date: 03/31/1989 Years since quittin.0 Smokeless tobacco: Never Substance and Sexual Activity Alcohol use: Yes Comment: 0-2 drinks qd Drug use: Never Sexual activity: Not on file Other Topics Concern Not on file Social History Narrative Not on file Social Determinants of Health Financial Resource Strain: Not on file Food Insecurity: Not on file Transportation Needs: Not on file Physical Activity: Not on file Stress: Not on file Social Connections: Not on file Intimate Partner Violence: Not on file Housing Stability: Not on file Family History Problem Relation Age of Onset Heart Failure Mother Hypertension Sister Hypertension Brother Hypertension Brother REVIEW OF SYSTEMS: Constitutional: Negative. Negative for fever, chills, weight loss, weight gain and malaise/fatigue. Skin: Negative. Negative for rash, itching and skin lesions. Musculoskeletal: Negative. Negative for myalgias, back pain, joint pain and falls. Neurological: Negative. Negative for dizziness and seizures. VITALS: There were no vitals filed for this visit. PHYSICAL EXAM: General: Chayo Martinez is seated comfortably in the examination room. She is alert and oriented to time and place. In no acute distress. Mood and affect are normal and appropriate to situation. She presents well developed, well-nourished female. She presents ambulating in shoe gear. Neurological: Protective sensation is normal when tested with 5.07 Dunlap Kat monofilament bilaterally. Epicritic sensation intact. Dermatological: Skin supple and well hydrated. No abrasions, lacerations, or ecchymosis noted. No open lesions. Web spaces are dry, clean and intact without maceration. Musculoskeletal: 5/5 muscle strength for all groups of the foot and ankle bilaterally: dorsiflexion, inversion, eversion and plantarflexion. Ankle joint, subtalar joint, midtarsal joint ROM are full and pain free bilaterally. 1st MTPJ ROM significantly limited with loading and unloading of the foot with palpable dorsal exostosis. POP to 1st MTPJ. Pain with end ROM. Vascular: Dorsalis pedis pulses +2 and posterior tibial pulses +2 bilaterally. Capillary refill time is brisk to all toes. There is no edema noted to the lower extremities. Imaging: XR FOOT RIGHT 3 VIEWS Narrative: EXAM: XR FOOT LEFT 3 VIEWS, XR FOOT RIGHT 3 VIEWS, 04/11/2023 08:24 AM COMPARISON: No prior studies available for comparison. CLINICAL INDICATIONS: bunion pain RELEVANT CLINICAL HISTORY: M21.611:Bilateral bunions M21.612:Bilateral bunions Weight Bearing; FINDINGS: RIGHT FOOT: 3 weight-bearing images obtained. Soft Tissue: There is no significant soft tissue swelling. Bone: Osseous demineralization is noted. No acute fracture identified. Enthesopathic change noted at the calcaneal insertion of the Achilles tendon and origin of the central cord of the plantar fascia. Bony hypertrophy of the dorsomedial aspect of the first metatarsal head. Joint: Narrowing and osteophytosis of the first MTP joint. Valgus deformity of the second DIP joint. Diffuse narrowing of the interphalangeal joints. LEFT FOOT: 3 weight-bearing images obtained. Soft Tissue: Soft tissue swelling adjacent to the first MTP joint. Bone: Osseous demineralization is noted. No acute fracture identified. Enthesopathic change noted at the calcaneal insertion of the Achilles tendon and origin of the central cord of the plantar fascia. Joint: Narrowing and osteophytosis of the first MTP joint. Diffuse narrowing of the interphalangeal joints. 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 Impression: IMPRESSION: Osteoarthritis of both forefeet, greatest at the first MTP joints. Valgus deformities of the second DIP joints bilaterally. Calcaneal enthesopathy. FOOT LEFT 3 VIEWS Narrative: EXAM: XR FOOT LEFT 3 VIEWS, XR FOOT RIGHT 3 VIEWS, 04/11/2023 08:24 AM COMPARISON: No prior studies available for comparison. CLINICAL INDICATIONS: bunion pain RELEVANT CLINICAL HISTORY: M21.611:Bilateral bunions M21.612:Bilateral bunions Weight Bearing; FINDINGS: RIGHT FOOT: 3 weight-bearing images obtained. Soft Tissue: There is no significant soft tissue swelling. Bone: Osseous demineralization is noted. No acute fracture identified. Enthesopathic change noted at the calcaneal insertion of the Achilles tendon and origin of the central cord of the plantar fascia. Bony hypertrophy of the dorsomedial aspect of the first metatarsal head. Joint: Narrowing and osteophytosis of the first MTP joint. Valgus deformity of the second DIP joint. Diffuse narrowing of the interphalangeal joints. LEFT FOOT: 3 weight-bearing images obtained. Soft Tissue: Soft tissue swelling adjacent to the first MTP joint. Bone: Osseous demineralization is noted. No acute fracture identified. Enthesopathic change noted at the calcaneal insertion of the Achilles tendon and origin of the central cord of the plantar fascia. Joint: Narrowing and osteophytosis of the first MTP joint. Diffuse narrowing of the interphalangeal joints. 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 Impression: IMPRESSION: Osteoarthritis of both forefeet, greatest at the first MTP joints. Valgus deformities of the second DIP joints bilaterally. Calcaneal enthesopathy. SSMENT: Chayo Martinez is a 57 y.o. female who presents with the following. Chayo was seen today for new patient and new patient. Diagnoses and all orders for this visit: Hallux rigidus, bilateral Bilateral foot pain Other orders - XR FOOT RIGHT 3 VIEWS; Future - XR FOOT LEFT 3 VIEWS; Future PLAN: Patient examined and evaluated. Today I explained the etiology, prognosis, and treatment options for her diagnosis. All questions have been answered to the patients satisfaction and in layman's terms. XRs ordered and independently reviewed - findings consistent with hallux rigidus demonstrated by joint space narrowing, dorsal osteophytes, loose bodies, subchondral sclerosis. Discussed that the patients symptoms and clinical exam is most consistent with arthritis of the 1st MTPJ. Discussed conservative options including rigid shoe gear, carbon fiber plates or orthotics, antiinflammatories, and steroid injections. briefly discussed surgical options. -Referral for custom orthotics with cuenca's extension, alternatively can try carbon fiber foot inserts -stiff shoes with rocker bottom -[facility] voltaren gel -Briefly discussed surgical intervention with 1st MTPJ arthrodesis should pain persist. The patient needs a custom fabricated orthosis for ambulatory purposes. The orthosis will lend stability to the limb during ambulation and allow for continuing navigation safely through the environment. The diagnosis necessitates a well-molded orthosis that intimately contours to the limb to control biomechanical forces in more than one plane and protect skin integrity. The patient will need the orthosis for greater than 9 months. An uwi-avg-hortc design will not adequately meet their needs secondary to the specific alignment required. The patient has tried bracing in the past but it is not meeting their needs as per current diagnosis and symptoms. A new orthosis is indicated in order to intimately contour to the limb at its current shape and size and the current demands for control. The existing orthosis cannot be altered to accommodate this change in shape and need for stability / motion control. The most functional, least costly approach is a new custom fabricated orthosis. documented in this encounter [facility] 03-29-2023 History of Present illness Narrative New Patient Visit: Urology Female Pelvic Medicine and Reconstructive Surgery Chief Complaint Patient presents with New Patient Referring Provider: Self, Self HPI I had the pleasure of seeing 57 y.o. female with has a past medical history of Anemia, HLD (hyperlipidemia), HTN (hypertension), and Migraine. in the urology clinic today for I am tired of peeing when I walk . This has been going on for several years. NO: Yes UUI: No Pads: 1-2 ppd Urgency: No Frequency: No Nocturia: No Straining to void: No Empties to completion: Yes Fluids: 1 gallon water/day Caffeine: Coffee throughout the day ROS: Hematuria: No UTIs: No Kidney stones: No Bowel function: Bowel Movement per Week: Daily Constipation: No Diarrhea: No Fecal Incontinence: No Gynecological History: Vaginal deliveries: 3 Menopausal: Yes Prior hysterectomy: No History of abnormal PAPs: No Hormone replacement: No Prolapse Symptoms: Bulge/pressure: No Sexual History: Sexually active: Yes Desires to be sexually active in future: Yes Dyspareunia: No Past Medical History Past Medical History: Diagnosis Date Anemia HLD (hyperlipidemia) HTN (hypertension) Migraine Past Surgical History Past Surgical History: Procedure Laterality Date AUGMENTATION BREAST KNEE SURGERY Right x2 REFRACTIVE SURGERY TUBAL LIGATION Medications Current Outpatient Medications Medication Sig Dispense Refill amLODIPine 5 MG tablet Take 2 tablets by mouth daily. Calcium Carbonate (CALCIUM-CARB 600 PO) Take by mouth daily. ibuprofen (ADVIL) 200 MG Tab tablet Take 2 tablets by mouth every 6 hours as needed. Magnesium Oxide (Mag-Oxide) 200 MG tablet Take by mouth daily. Multiple Vitamin (multivitamin) capsule Take 1 capsule by mouth daily. Sertraline 50 MG tablet Take 1 tablet by mouth daily. No current facility-administered medications for this visit. Allergies Allergies Allergen Reactions Sulfa Antibiotics Syncope Social History Social History Tobacco Use Smoking status: Former Packs/day: 0.75 Years: 8.00 Total pack years: 6.00 Types: Cigarettes Start date: 03/31/1983 Quit date: 03/31/1989 Years since quittin.0 Smokeless tobacco: Never Substance Use Topics Alcohol use: Yes Comment: 0-2 drinks qd Drug use: Never Family History Family History Problem Relation Age of Onset Heart Failure Mother Hypertension Sister Hypertension Brother Hypertension Brother Review of Systems Pertinent positives and negatives are noted in HPI. Physical Exam BP (!) 150/96 (BP Location: Left arm) Pulse 90 Ht 1.676 m (5' 6 ) Wt 73 kg (161 lb) SpO2 99% BMI 25.99 kg/m Smoking Status Former Body mass index is 25.99 kg/m . Constitutional: NAD, WDWN. Pelvic Exam: External genitalia: Normal labia minora and majora, normal clitoris, prepuce Urinary system: urethral meatus normal, urethra and bladder palpate normally Vaginal: well estrogenized, no lesions No prolapse present NO demonstrated on exam Labs No results found for: WBC , WBCCOUNT , WBCFETAL , HGB , HCT , PLATELET , MCV Lab Results Component Value Date GLUCOSE neg 03/31/2018 Lab Results Component Value Date APPEARANCE cloudy 03/31/2018 COLOR light yellow 03/31/2018 PH 7.0 03/31/2018 SPECIFICGRAV 1.010 03/31/2018 PROTEIN neg 03/31/2018 GLUCOSE neg 03/31/2018 BILIRUBIN neg 03/31/2018 UROBILINOGEN 0.2 03/31/2018 BLOOD mod 03/31/2018 NITRITE neg 03/31/2018 LEUKOCYTE large 03/31/2018 Post-Void Residual A post-void residual was measured by ultrasonic bladder scanner. Radiographic Studies None Assessment Ms. Martinez is a 57 y.o. female with the following diagnosis: ICD-10-CM 1. 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 Refer to Dr. Moreno for bulking agent- case request placed r/b/a reviewed All questions were answered. We reviewed the following treatments for female stress urinary incontinence: Observation Weight loss Pelvic floor exercises Incontinence devices Bulking agents Midurethral synthetic slings Fascial slings At this point the patient has failed: Observation The patient would like to proceed with: Bulking agent ROBERTO Adams documented in this encounter [facility] 12-25-2022 Note HNO ID: [id number] Author: RT Steffen(R) Service: Nuclear Medicine Author Type: Technologist Type: Progress Notes Filed: 12/25/2022 9:49 AM Note Text: Radiology Service Progress Note PATIENT NAME: Chayo Martinez DATE OF SERVICE: December 25, 2022 TIME: 9:43 AM PATIENT IDENTITY VERIFICATION COMPLETED USING TWO (2) IDENTIFIERS: Name and Date of confirmed by patient verbally. FALL SCREENING: Has the patient had 2 falls in the last year or 1 fall with injury or currently using an Ambulatory Assistive Device (Walker, Cane, Wheelchair, Crutches, etc.)? No PATIENT GENDER DATA: Female. status: : No status: NO. PATIENT RELEVANT IMPLANT DATA REVIEWED: Not Applicable RADIOLOGY DEPARTMENT: General X-ray: Exam(s) Completed: Rib X-Ray: Right PERIPHERAL IV DATA: Not applicable SIGNED BY: RT Steffen(R) December 25, 2022 9:43 AM [facility] 12-25-2022 Miscellaneous Notes Patient given results and verbalized understanding of instructions given. Rozina Ventura No abnormal findings on x-ray. Continue supportive therapies as discussed. Eloisa Carter APRN.CNP documented in this encounter [facility] 12-25-2022 Note HNO ID: [id number] Author: Eloisa Carter APRN.CNP Service: ? Author Type: Nurse Practitioner Type: Progress Notes Filed: 12/25/2022 11:14 AM Note Text: Subjective HPI Nontoxic-appearing female presents urgent care chief complaint right-sided rib pain. Duration of symptoms about 12 hours. Associated symptoms right-sided rib pain. Patient states she tripped last night going to the bathroom falling and hitting her right side of her ribs on the bed frame. Denies any loss of consciousness or syncopal episode. Patient denies any head neck or back pain. States she struck her right side of her ribs on the bed frame and then fell to the floor. Denies any other injuries. Denies any nausea vomiting abdominal pain. No blood in urine or stool. Past medical history prescription medication use allergies reviewed. .Patient presents with: Rib Injury: right side x last night, fell into bed frame PAST MEDICAL HISTORY Diagnosis Date NEGATIVE MEDICAL HISTORY PAST SURGICAL HISTORY Procedure Laterality Date ARTHROSCOPY KNEE DIAGNOSTIC W/WO SYNOVIAL BX SPX Right 2011 Arthroscopy, knee KNEE ARTHROSCOPY/SURGERY Left 2004 TUBAL LIGATION ALLERGIES Sulfa (Sulfonamide Antibiotics) MEDICATIONS amLODIPine (NORVASC) 5 mg tablet TAKE 1.5 TABLETS BY MOUTH EVERY DAY sertraline (ZOLOFT) 50 mg tablet TAKE 1 TABLET BY MOUTH EVERY DAY for 2 (TWO) weeks, then increase to 2 (TWO) tablets daily. meloxicam (MOBIC) 15 mg tablet Take 1 tablet by mouth once daily. (Patient not taking: Reported on 04/05/2020 ) History reviewed. No pertinent family history. Social History Tobacco Use Smoking status: Never Smokeless tobacco: Never BP 128/80 Pulse 78 Temp 36.4 ?C (97.6 ?F) Resp 16 Wt 74.4 kg (164 lb) LMP 05/28/2019 SpO2 100% Review of Systems Constitutional: Negative for chills, fever and malaise/fatigue. HENT: Negative for congestion, ear discharge, ear pain, sinus pain and sore throat. Eyes: Negative for blurred vision, pain, discharge and redness. Respiratory: Negative for cough, hemoptysis, sputum production, shortness of breath, wheezing and stridor. Cardiovascular: Negative for chest pain. Gastrointestinal: Negative for abdominal pain, diarrhea, nausea and vomiting. Musculoskeletal: Positive for falls. Negative for back pain, joint pain, myalgias and neck pain. Skin: Negative for itching and rash. Neurological: Negative for dizziness and headaches. Objective Physical Exam Constitutional: General: She is not in acute distress. Appearance: She is not diaphoretic. HENT: Head: Normocephalic. Eyes: Conjunctiva/sclera: Conjunctivae normal. Pupils: Pupils are equal, round, and reactive to light. Cardiovascular: Rate and Rhythm: Normal rate and regular rhythm. Heart sounds: Normal heart sounds. Pulmonary: Effort: Pulmonary effort is normal. No tachypnea, accessory muscle usage or respiratory distress. Breath sounds: Normal breath sounds. No stridor. No wheezing, rhonchi or rales. Abdominal: Palpations: Abdomen is soft. Tenderness: There is no abdominal tenderness. There is no right CVA tenderness, left CVA tenderness, guarding or rebound. Comments: Small area of ecchymosis noted highlighted area. Musculoskeletal: Cervical back: Normal range of motion. Thoracic back: No swelling, edema, tenderness or bony tenderness. Normal range of motion. Lumbar back: No swelling, edema, tenderness or bony tenderness. Normal range of motion. Back: Comments: Pain with palpation to highlighted area. No spinal tenderness. No crepitus. No deformities noted. Skin: General: Skin is warm and dry. Neurological: Mental Status: She is alert and oriented to person, place, and time. ASSESSMENT/PLAN: 1. Rib pain - ICD9: 786.50, ICD10: R07.81 - XR RIBS/CHEST 3V AP RIB/OBLS/CXR RIGHT IMPRESSION: No acute radiographic abnormality. No abnormal findings noted on x-ray. Red flags prompt reevaluation discussed. Patient was educated on supportive therapies. Patient will follow up with primary care provider as needed. Patient was instructed to immediately proceed to emergency room for any new, worsening, or symptoms lasting longer than anticipated. The patient's clinical presentation is otherwise unremarkable at this time. Based on exam and clinical finding, the patient is stable for discharge. Plan of care was discussed with patient. Patient verbalizes understanding and agrees to plan of care. This note was generated using [employer] software. It may contain errors in wording, punctuation, or spelling. Eloisa Carter APRN.BEAMER HELPER [facility] 06-14-2022 Note HNO ID: [id number] Author: Lisa Melendrez APRN.BEAMER HELPER Service: ? Author Type: Nurse Practitioner Type: Progress Notes Filed: 06/14/2022 1:43 PM Note Text: Could not connect on [employer] Platform. Visit cancelled. Lisa Melendrez DNP, APRN-CNP [facility] 06-14-2022 History of Present illness Narrative Could not connect on [employer] Platform. Visit cancelled. Lisa Melendrez DNP, APRN-CNP documented in this encounter [facility] 06-13-2022 Note HNO ID: [id number] Author: Lisa Melendrez APRN.CNP Service: ? Author Type: Nurse Practitioner Type: Progress Notes Filed: 06/14/2022 1:47 PM Note Text: June 13, 2022 Chayo Martinez 1965 VIRTUAL VISIT PROGRESS NOTE This is a virtual visit. It required patient-provider interaction for the medical decision making as documented below. Informed verbal consent was obtained from this patient to communicate and provide care using virtual and other telecommunications tools. This patient has been explained the risks related to unauthorized disclosure or interception of personal health information and steps they can take to help protect their information. We have discussed that care provided through video or audio communication cannot replace the need for physical examination or an in person visit for some disorders or urgent problems and patient understands the need to seek urgent care in an Emergency Department as necessary. Platform patient seen on: [email or web address] Online platform Location of patient: [place] is a 56 year old female seen for Patient presents with: UTI UTI This is a new problem. The problem occurs every urination. The problem has been gradually worsening. The quality of the pain is described as burning. The maximum temperature recorded prior to her arrival was 102 to 102.9 F. Associated symptoms include frequency, hesitancy and urgency. Pertinent negatives include no chills, no sweats, no nausea, no vomiting, no discharge, no hematuria, no possible and no flank pain. She has tried increased fluids for the symptoms. HISTORY REVIEWED (electronic chart updated): PAST MEDICAL HISTORY Diagnosis Date NEGATIVE MEDICAL HISTORY PAST SURGICAL HISTORY Procedure Laterality Date ARTHROSCOPY KNEE DIAGNOSTIC W/WO SYNOVIAL BX SPX Right 2012 Arthroscopy, knee KNEE ARTHROSCOPY/SURGERY Left 2004 TUBAL LIGATION History reviewed. No pertinent family history. Social History Tobacco Use Smoking status: Never Smokeless tobacco: Never Current Outpatient Medications Medication Sig amLODIPine (NORVASC) 5 mg tablet TAKE 1.5 TABLETS BY MOUTH EVERY DAY sertraline (ZOLOFT) 50 mg tablet TAKE 1 TABLET BY MOUTH EVERY DAY for 2 (TWO) weeks, then increase to 2 (TWO) tablets daily. nitrofurantoin monohydrate and macrocrystal (MACROBID) 100 mg capsule Take 1 capsule by mouth twice daily for 5 days. meloxicam (MOBIC) 15 mg tablet Take 1 tablet by mouth once daily. (Patient not taking: Reported on 04/05/2020 ) No current facility-administered medications for this visit. ALLERGIES Allergen Reactions Sulfa (Sulfonamide * GI Upset REVIEW OF SYSTEMS: Review of Systems Constitutional: Negative for activity change, appetite change, chills, diaphoresis, fatigue, fever and unexpected weight change. Eyes: Negative for visual disturbance. Respiratory: Negative for apnea, cough, choking, chest tightness, shortness of breath, wheezing and stridor. Cardiovascular: Negative for chest pain, palpitations and leg swelling. Gastrointestinal: Negative for abdominal pain, nausea and vomiting. Endocrine: Negative for cold intolerance, heat intolerance, polydipsia, polyphagia and polyuria. Genitourinary: Positive for dysuria, frequency, hesitancy and urgency. Negative for decreased urine volume, difficulty urinating, dyspareunia, enuresis, flank pain, genital sores, hematuria, menstrual problem, pelvic pain, vaginal bleeding, vaginal discharge and vaginal pain. Musculoskeletal: Negative for back pain. Skin: Negative for color change, rash and wound. Psychiatric/Behavioral: Negative. PHYSICAL EXAMINATION: VIDEO EXAM: (performed via video enabled technology) VIDEO EXAM: (performed via video enabled technology) GENERAL: alert and appropriate, in no distress, well-hydrated, well nourished, and happy, smiling, interactive SKIN: no rash noted HEAD: normocephalic, no abnormality or lesion noted RESPIRATORY: breathing non-labored ABDOMEN: soft and non-tender NEUROLOGIC: no obvious deficit ASSESSMENT: (N39.0) Urinary tract infection without hematuria, site unspecified (primary encounter diagnosis) PLAN: Encounter Diagnosis ICD-10-CM 1. Urinary tract infection without hematuria, site unspecified N39.0 nitrofurantoin monohydrate and macrocrystal (MACROBID) 100 mg capsule Return if symptoms worsen or fail to improve, for recheck with PCP. Patient Instructions UTI Instructions WHAT YOU NEED TO KNOW: A urinary tract infection (UTI) is caused by bacteria that get inside your urinary tract. Most bacteria that enter your urinary tract come out when you urinate. If the bacteria stay in your urinary tract, you may get an infection. Your urinary tract includes your kidneys, ureters, bladder, and urethra. Urine is made in your kidneys, and it flows from the ureters to the bladder. Urine leaves the bladder through the urethra. A UTI is more (more content not included)... [facility] 06-13-2022 Instructions Lisa Melendrez APRN.BEAMER HELPER - 06/13/2022 3:20 PM EDT UTI Instructions WHAT YOU NEED TO KNOW: A urinary tract infection (UTI) is caused by bacteria that get inside your urinary tract. Most bacteria that enter your urinary tract come out when you urinate. If the bacteria stay in your urinary tract, you may get an infection. Your urinary tract includes your kidneys, ureters, bladder, and urethra. Urine is made in your kidneys, and it flows from the ureters to the bladder. Urine leaves the bladder through the urethra. A UTI is more common in your lower urinary tract, which includes your bladder and urethra. DISCHARGE INSTRUCTIONS: GO to the emergency department if: You are urinating very little or not at all. You have a high fever with shaking chills. You have side or back pain that gets worse. Call your doctor if: You have a fever. You do not feel better after 2 days of taking antibiotics. You are vomiting. You have questions or concerns about your condition or care. Medicines: Antibiotics help fight a bacterial infection. If you have UTIs often (called recurrent UTIs), you may be given antibiotics to take regularly. You will be given directions for when and how to use antibiotics. The goal is to prevent UTIs but not cause antibiotic resistance by using antibiotics too often. Medicines may be given to decrease pain and burning when you urinate. They will also help decrease the feeling that you need to urinate often. These medicines will make your urine orange or red. You can buy a version of this over the counter called AZO urinary tract pain relief. Please ask your pharmacist for assistance. Take your medicine as directed. Contact your healthcare provider if you think your medicine is not helping or if you have side effects. Tell him or her if you are allergic to any medicine. Keep a list of the medicines, vitamins, and herbs you take. Include the amounts, and when and why you take them. Bring the list or the pill bottles to follow-up visits. Carry your medicine list with you in case of an emergency. Prevent another UTI: Empty your bladder often. Urinate and empty your bladder as soon as you feel the need. Do not hold your urine for long periods of time. Wipe from front to back after you urinate or have a bowel movement. This will help prevent germs from getting into your urinary tract through your urethra. Drink liquids as directed. Ask how much liquid to drink each day and which liquids are best for you. You may need to drink more liquids than usual to help flush out the bacteria. Do not drink alcohol, caffeine, or citrus juices. These can irritate your bladder and increase your symptoms. Your healthcare provider may recommend cranberry juice to help prevent a UTI. Urinate after you have sex. This can help flush out bacteria passed during sex. Do not douche or use feminine deodorants. These can change the chemical balance in your vagina. Change sanitary pads or tampons often. This will help prevent germs from getting into your urinary tract. Talk to your healthcare provider about your control method. You may need to change your method if it is increasing your risk for UTIs. Wear cotton underwear and clothes that are loose. Tight pants and nylon underwear can trap moisture and cause bacteria to grow. Vaginal estrogen may be recommended. This medicine helps prevent UTIs in women who have gone through menopause or are in genevieve-menopause. Do pelvic muscle exercises often. Pelvic muscle exercises may help you start and stop urinating. Strong pelvic muscles may help you empty your bladder easier. Squeeze these muscles tightly for 5 seconds like you are trying to hold back urine. Then relax for 5 seconds. Gradually work up to squeezing for 10 seconds. Do 3 sets of 15 repetitions a day, or as directed. documented in this encounter [facility] 06-13-2022 History of Present illness Narrative Images from the original note were not included. June 13, 2022 Chayo Martinez 1965 VIRTUAL VISIT PROGRESS NOTE This is a virtual visit. It required patient-provider interaction for the medical decision making as documented below. Informed verbal consent was obtained from this patient to communicate and provide care using virtual and other telecommunications tools. This patient has been explained the risks related to unauthorized disclosure or interception of personal health information and steps they can take to help protect their information. We have discussed that care provided through video or audio communication cannot replace the need for physical examination or an in person visit for some disorders or urgent problems and patient understands the need to seek urgent care in an Emergency Department as necessary. Platform patient seen on: [email or web address] Online platform Location of patient: [place] is a 56 year old female seen for Patient presents with: UTI UTI This is a new problem. The problem occurs every urination. The problem has been gradually worsening. The quality of the pain is described as burning. The maximum temperature recorded prior to her arrival was 102 to 102.9 F. Associated symptoms include frequency, hesitancy and urgency. Pertinent negatives include no chills, no sweats, no nausea, no vomiting, no discharge, no hematuria, no possible and no flank pain. She has tried increased fluids for the symptoms. HISTORY REVIEWED (electronic chart updated): PAST MEDICAL HISTORY Diagnosis Date NEGATIVE MEDICAL HISTORY PAST SURGICAL HISTORY Procedure Laterality Date ARTHROSCOPY KNEE DIAGNOSTIC W/WO SYNOVIAL BX SPX Right 2011 Arthroscopy, knee KNEE ARTHROSCOPY/SURGERY Left 2004 TUBAL LIGATION History reviewed. No pertinent family history. Social History Tobacco Use Smoking status: Never Smokeless tobacco: Never Current Outpatient Medications Medication Sig amLODIPine (NORVASC) 5 mg tablet TAKE 1.5 TABLETS BY MOUTH EVERY DAY sertraline (ZOLOFT) 50 mg tablet TAKE 1 TABLET BY MOUTH EVERY DAY for 2 (TWO) weeks, then increase to 2 (TWO) tablets daily. nitrofurantoin monohydrate and macrocrystal (MACROBID) 100 mg capsule Take 1 capsule by mouth twice daily for 5 days. meloxicam (MOBIC) 15 mg tablet Take 1 tablet by mouth once daily. (Patient not taking: Reported on 04/05/2020 ) No current facility-administered medications for this visit. ALLERGIES Allergen Reactions Sulfa (Sulfonamide * GI Upset REVIEW OF SYSTEMS: Review of Systems Constitutional: Negative for activity change, appetite change, chills, diaphoresis, fatigue, fever and unexpected weight change. Eyes: Negative for visual disturbance. Respiratory: Negative for apnea, cough, choking, chest tightness, shortness of breath, wheezing and stridor. Cardiovascular: Negative for chest pain, palpitations and leg swelling. Gastrointestinal: Negative for abdominal pain, nausea and vomiting. Endocrine: Negative for cold intolerance, heat intolerance, polydipsia, polyphagia and polyuria. Genitourinary: Positive for dysuria, frequency, hesitancy and urgency. Negative for decreased urine volume, difficulty urinating, dyspareunia, enuresis, flank pain, genital sores, hematuria, menstrual problem, pelvic pain, vaginal bleeding, vaginal discharge and vaginal pain. Musculoskeletal: Negative for back pain. Skin: Negative for color change, rash and wound. Psychiatric/Behavioral: Negative. PHYSICAL EXAMINATION: VIDEO EXAM: (performed via video enabled technology) VIDEO EXAM: (performed via video enabled technology) GENERAL: alert and appropriate, in no distress, well-hydrated, well nourished, and happy, smiling, interactive SKIN: no rash noted HEAD: normocephalic, no abnormality or lesion noted RESPIRATORY: breathing non-labored ABDOMEN: soft and non-tender NEUROLOGIC: no obvious deficit ASSESSMENT: (N39.0) Urinary tract infection without hematuria, site unspecified (primary encounter diagnosis) PLAN: Encounter Diagnosis ICD-10-CM 1. Urinary tract infection without hematuria, site unspecified N39.0 nitrofurantoin monohydrate and macrocrystal (MACROBID) 100 mg capsule Return if symptoms worsen or fail to improve, for recheck with PCP. Patient Instructions UTI Instructions WHAT YOU NEED TO KNOW: A urinary tract infection (UTI) is caused by bacteria that get inside your urinary tract. Most bacteria that enter your urinary tract come out when you urinate. If the bacteria stay in your urinary tract, you may get an infection. Your urinary tract includes your kidneys, ureters, bladder, and urethra. Urine is made in your kidneys, and it flows from the ureters to the bladder. Urine leaves the bladder through the urethra. A UTI is more common in your lower urinary tract, which includes your bladder and urethra. DISCHARGE INSTRUCTIONS: GO to the emergency department if: You are urinating very little or not at all. You have a high fever with shaking chills. You have side or back pain that gets worse. Call your doctor if: You have a fever. You do not feel better after 2 days of taking antibiotics. You are vomiting. You have questions or concerns about your condition or care. Medicines: Antibiotics help fight a bacterial infection. If you have UTIs often (called recurrent UTIs), you may be given antibiotics to take regularly. You will be given directions for when and how to use antibiotics. The goal is to prevent UTIs but not cause antibiotic resistance by using antibiotics too often. Medicines may be given to decrease pain and burning when you urinate. They will also help decrease the feeling that you need to urinate often. These medicines will make your urine orange or red. You can buy a version of this over the counter called AZO urinary tract pain relief. Please ask your pharmacist for assistance. Take your medicine as directed. Contact your healthcare provider if you think your medicine is not helping or if you have side effects. Tell him or her if you are allergic to any medicine. Keep a list of the medicines, vitamins, and herbs you take. Include the amounts, and when and why you take them. Bring the list or the pill bottles to follow-up visits. Carry your medicine list with you in case of an emergency. Prevent another UTI: Empty your bladder often. Urinate and empty your bladder as soon as you feel the need. Do not hold your urine for long periods of time. Wipe from front to back after you urinate or have a bowel movement. This will help prevent germs from getting into your urinary tract through your urethra. Drink liquids as directed. Ask how much liquid to drink each day and which liquids are best for you. You may need to drink more liquids than usual to help flush out the bacteria. Do not drink alcohol, caffeine, or citrus juices. These can irritate your bladder and increase your symptoms. Your healthcare provider may recommend cranberry juice to help prevent a UTI. Urinate after you have sex. This can help flush out bacteria passed during sex. Do not douche or use feminine deodorants. These can change the chemical balance in your vagina. Change sanitary pads or tampons often. This will help prevent germs from getting into your urinary tract. Talk to your healthcare provider about your control method. You may need to change your method if it is increasing your risk for UTIs. Wear cotton underwear and clothes that are loose. Tight pants and nylon underwear can trap moisture and cause bacteria to grow. Vaginal estrogen may be recommended. This medicine helps prevent UTIs in women who have gone through menopause or are in genevieve-menopause. Do pelvic muscle exercises often. Pelvic muscle exercises may help you start and stop urinating. Strong pelvic muscles may help you empty your bladder easier. Squeeze these muscles tightly for 5 seconds like you are trying to hold back urine. Then relax for 5 seconds. Gradually work up to squeezing for 10 seconds. Do 3 sets of 15 repetitions a day, or as directed. Medical Decision Making: Problems: Low: Acute, uncomplicated illness or injury Risk: Low: Low risk from testing/treatment Medical Decision Making Level: 3 - Low -I have reviewed and updated with the patient: allergies, VS, current medications, Past Medical History,Past Surgical History,Past Family Medical History, Past Social History. - Patient education provided today. - Discussed with patient medications that are indicated and how to use the medications and what the potential side effects are. - Follow up with PCP in 2-3 days if symptoms progress - Warning signs of worsening condition explained to patient, Red flags discussed - Patient in stable condition after questions answered and patient verbalizes understanding - Report to ED with any worsening symptoms or life-threatening concerns Lisa Melendrez APRN.[place] If you let us know who your primary care provider is, we will send them a notification of today s visit through our electronic medical records system. Since not all providers have access to our notifications, we strongly encourage you to share the following record of today s visit with your primary care provider at your next visit. This will help in providing you the best care. If you do not have an established Primary Care physician and would like to continue care with a [facility] Virtual Primary Care physician, please ask your provider to place a Establish Primary Care order. Use [employer] to manage your care, wherever you are, 21/03, on your mobile device or computer. [employer] connects you to [employer] so you can access all your health information in one place and also schedule and request virtual appointments with primary care providers. documented in this encounter [facility] Diagnosis Urinary tract infection without hematuria, site unspecified- Primary [facility] Diagnosis Intrinsic sphincter deficiency- Primary Intrinsic (urethral) [facility]er [facility]ISD[facility] Hallux rigidus, bilateral- Primary Bilateral foot pain Pain in limb Bilateral bunions Bunion Bilateral bunions Bunion 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) [facility] Diagnosis Bilateral bunions Bunion 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) documented in this encounter [facility] Summary Purpose Family History No Family History Records FoundNo Family History Records FoundNo Family History Records Found Advance Directives No Advanced Directives Records FoundNo Advanced Directives Records FoundNo Advanced Directives Records Found Reason for Referral Specialty Diagnoses / Procedures Referred By Contac t Referred To Contact Diagnoses Hallux rigidus, bilateral Bilateral foot pain Procedures XR FOOT LEFT 3 VIEWS [place] X-RAY FOOT 3+ VW LabMarshall bermudez A, DPM [address] [place] [address] Referral ID Status Reason Start Date Expiration Date V isits Requested Visits Authorized [id number] Pending Review 04/11/2023 05/05/2024 1 1 Specialty Diagnoses / Procedures Referred By Contac t Referred To Contact Diagnoses Hallux rigidus, bilateral Bilateral foot pain Procedures XR FOOT RIGHT 3 VIEWS [place] X-RAY FOOT 3+ VW LabroMarshall william, DPM [address] [place] [address] Referral ID Status Reason Start Date Expiration Date V isits Requested Visits Authorized [id number] Pending Review 04/11/2023 05/05/2024 1 1 Additional Source Comments INFORMATION SOURCE (unrecogn ized section and content) DATE CREATED AUTHOR AUTHOR'S ORGANIZ ATION 12/25/2022 [facility] DATE CREATED AUTHOR AUTHOR'S ORGANIZ ATION 05/20/2023 [facility] Source Comments (unrecognize d section and content) In the event this informatio n is protected by the Federal Confidentiality of Alcohol and Drug Abuse Patient Records regulations: The Federal rules restrict any use of the information to criminally investigate or prosecute any alcohol or drug abuse patient.[facility] the event this information is protected by the Federal Confidentiality of Alcohol and Drug Abuse Patient Records regulations: The Federal rules restrict any use of the information to criminally investigate or prosecute any alcohol or drug abuse patient.[facility] the event this information is protected by the Federal Confidentiality of Alcohol and Drug Abuse Patient Records regulations: The Federal rules restrict any use of the information to criminally investigate or prosecute any alcohol or drug abuse patient.[facility] Reason for Visit (unrecogniz ed section and content) Reason Comments UTI Reason Comments Results Reason Comments New Patient Reason Comments New Patient Pt c/o b/l bunions, pt would like to discuss all treatment options. L worse than R, can be painful at times. New Patient Specialty Diagnoses / Procedures Referred By Contac t Referred To Contact Diagnoses Hallux rigidus, bilateral Bilateral foot pain Procedures XR FOOT LEFT 3 VIEWS [place] X-RAY FOOT 3+ VW Marshall Priest DPM [address] [place] [address] Referral ID Status Reason Start Date Expiration Date V isits Requested Visits Authorized [id number] Pending Review 04/11/2023 05/05/2024 1 1 Specialty Diagnoses / Procedures Referred By Contac t Referred To Contact Diagnoses Hallux rigidus, bilateral Bilateral foot pain Procedures XR FOOT RIGHT 3 VIEWS [place] X-RAY FOOT 3+ Marshall Blackwell, DPM [address] [place] [address] Referral ID Status Reason Start Date Expiration Date V isits Requested Visits Authorized [id number] Pending Review 04/11/2023 05/05/2024 1 1 Care Teams (unrecognized sec tion and content) [employer] Relationship Specialty Start Date End Date Dania Rubalcava MD [address] [phone] PCP - General Internal Medicine 10/26/21 [employer] Relationship Specialty Start Date End Date Dania Rubalcava MD [address] [phone] PCP - General Internal Medicine 10/26/21 FOR RECORDS PERTAINING TO PATIENTS WHO ARE OR HAVE BEEN ENROLLED IN A CHEMICAL DEPENDENCY/SUBSTANCEABUSE PROGRAM, SOME INFORMATION MAY BE OMITTED. This clinical summary was aggregated from multiple sources. Caution should be exercised in using it in the provision of clinical care. This summary normalizes information from multiple sources, and as a consequence, information in this document may materially change the coding, format and clinical context of patient data. In addition, data may be omitted in some cases. CLINICAL DECISIONS SHOULD BE BASED ON THE PRIMARY CLINICAL RECORDS. [facility] [facility]. provides no warranty or guarantee of the accuracy or completeness of information in this document.
== END | disposition home or self-care (01) ==
LOC: OPBI 15:25
PROVIDERS: PCP Internal Medicine; Referring Provider Internal Medicine; Visit Provider Internal Medicine
DX: Z12.31 Encounter for screening mammogram for malignant neoplasm of breast (principal); Z80.3 Family history of malignant neoplasm of breast
CPT/HCPCS: 77063; 77067

== ENCOUNTER → 2023-10-10 | Outpatient (CLI) | payer OTHER, SELFPAY ==
--- OUTSIDE RECORDS SUMMARY | 2023-10-10 12:17 | XMS RPT_ITS | CCD ---
Author Name Unknown Address [address] [place] [address] Organization [facility] Care Team Providers Care Information Security Systems Instructor Name Role Phone Unavailable Primary Care Provider UnavailELOISA Gasca Referring Unavailable LISA GRAY Attending Unavailable LISA GRAY Attending Unavailable Unavailable Primary Care Provider Unavailjake Rubalcava MD, Dania Blevins Primary Care Provider MARSHALL PRIEST Referring Unavailable [...] Allergy Type Date of Onset Reaction(s) Facility (11 sources) Sulfonamides (Antibiotic); Translations: [SULFA (SULFONAMIDE ANTIBIOTICS)] Drug Allergy 7 GI Upset, Syncope [facility] Medications Current Medications Medication Drug Class(es) Dates Sig (Normalized) Sig (Original) Calcium Carbonate (7 sources) Calcium Carbonat e (CALCIUM-CARB 600 PO) Take by mouth daily. 0 Active ibuprofen 200 mg oral tablet (7 sources) Nonsteroidal Anti-inflammatory Drug take 2 tablets by mouth every six hours as needed ibuprofen (ADVIL) 200 MG Tab tablet Take 2 tablets by mouth every 6 hours as needed. 0 Active magnesium oxide 200 mg oral tablet (7 sources) Magnesium Oxide (Mag-Oxide) 200 MG tablet Take by mouth daily. 0 Active meloxicam 15 mg oral tablet (6 sources) Nonsteroidal Anti-inflammatory Drug Start: 10-06-2023 take 1 tablet by mouth once daily as needed Meloxicam 15 MG tablet Indications: Arthritis of right hip , Arthritis of left hip Take 1 tablet by mouth daily as needed. Take with food. Dont take with other nsaids. 30 tablet 3 10/06/2023 Active Completed/Discontinued Medications Medication Drug Class(es) Dates Sig (Normalized) Sig (Original) amLODIPine 5 mg oral tablet (10 sources) Dihydropyridine Calcium Channel Darrius Start: 05-24-2022 [...] Translations: [Depression, unspecified] Onset: 01-20-2022 06-14-2022 Chronic Osteoarthritis (2 sources) Arthritis of right hip; Translations: [Unilateral primary osteoarthritis, right hip] 10-06-2023 Chronic Other connective tissue disease (1 source) [...] Pleurodynia; Translations: [Rib pain] Onset: 12-25-2022 Episodic Other non-traumatic joint disorders (2 sources) Hip pain; Translations: [Pain in right hip] 10-06-2023 Episodic Unclassified (1 source) APPOINTMENT CANCELLED Urinary tract infections (1 source) Urinary tract infectious disease; Translations: [Urinary tract infection, site not specified] Episodic Results Test Name Value Interpretation Reference Range Facil ity Vital Signs Date Time Vital Sign Value Performing Clinician Faci lity 10-06-2023 09:53-0500 Body height 168.9 cm Jane Page MD Work Phone: [facility] 10-06-2023 09:53-0500 Body mass index (BMI) [Ratio] 25.96 kg/m2 Jane Page MD Work Phone: [facility] 10-06-2023 09:53-0500 Body weight 74.07 kg Jane Page MD Work Phone: [facility] 10-06-2023 09:53-0500 Diastolic blood pressure 90 mm[Hg] Jane Page MD Work Phone: [facility] 10-06-2023 09:53-0500 Heart rate 85 /min Jane Page MD Work Phone: [facility] 10-06-2023 09:53-0500 SaO2% (BldA) [Mass fraction] 100 % Jane Page MD Work Phone: [facility] 10-06-2023 09:53-0500 Systolic blood pressure 141 mm[Hg] Jane Page MD Work Phone: [facility] 03-29-2023 10:40-0400 Body height 167.6 cm Nida Zonia ARMANDO-STEVEDORING SUPERVISOR Work Phone: [facility] 03-29-2023 10:40-0400 Body mass index (BMI) [Ratio] 25.99 kg/m2 Nida Zonia ARMANDO-STEVEDORING SUPERVISOR Work Phone: [facility] 03-29-2023 10:40-0400 Body weight 73.03 kg Nida Brar APRN-STEVEDORING SUPERVISOR Work Phone: [facility] 03-29-2023 10:40-0400 Diastolic blood pressure 96 mm[Hg] Nida Brar APRN-STEVEDORING SUPERVISOR Work Phone: [facility] 03-29-2023 10:40-0400 Heart rate 90 /min Nida Brar APRN-STEVEDORING SUPERVISOR Work Phone: [facility] 03-29-2023 10:40-0400 SaO2% (BldA) [Mass fraction] 99 % Nida Brar APRN-STEVEDORING SUPERVISOR Work Phone: [facility] 03-29-2023 10:40-0400 Systolic blood pressure 150 mm[Hg] Nida Brar APRN-STEVEDORING SUPERVISOR Work Phone: [facility] Encounters Encounter Date Encounter Type Care Provider Facility Start: 10-06-2023 End: 10-06-2023 Office outpatient new 45 minutes Jane Page MD Work Phone: [facility] Procedures Date Procedure Procedure Detail Performing Clinician Start: 10-06-2023 End: 10-06-2023 Radex hip unilateral with pelvis 2-3 views Jane Page MD Work Phone: Start: 04-11-2023 End: 04-11-2023 Radex foot complete minimum 3 views Marshall SOTELOM Work Phone: Plan of Treatment Date Care Activity Detail Author Start: 11-08-2023 End: 11-08-2023 Patient encounter procedure 11/08/2023 9:20 AM EDT Office Visit [facility] [address] [place] [address] Steve Glass MD [address] [place], [place] [id number] [facility] Start: 10-21-2023 End: 10-21-2023 Patient encounter procedure 10/21/2023 9:40 AM EST Office Visit [facility] [address] [facility] [facility] [address] [place] [phone] Adamaris Mar MD [address] [place] [address] [facility] Start: 04-29-2023 Influenza vaccination INFLUENZA VACCINE (#1) [facility] Start: 04-26-2023 End: 04-26-2023 Admission to same day surgery center 04/26/2023 8:00 AM EDT - 04/26/2023 8:45 AM EDT Surgery [facility] [address] [place], [place] [id number] Ruthy Moreno MD [address] [place] [address] INJECTION BLADDER NECK/URETHRA SUBMUCOSAL IMPLANT MATERIAL ENDOSCOPIC [facility] Immunizations Immunization Date Immunization Notes Care Provider Fa cili 06-19-2022 influenza virus vaccine, unspecified formulation Nida Brar TELEVISION MECHANIC-STEVEDORING SUPERVISOR Work Phone: [facility] Payers Date Payer Category Payer Unknown [id number] 2016 Unknown [id number] 1965 Unknown [id number] 2.16. [id number] 1964 Unknown [id number] 10.14. [id number] 1964 Unknown [id number] 2.16. [id number] 1964 Unknown [id number] 2.. [id number] 1964 Unknown [id number] 2.. [id number] 1964 Unknown [id number] 2.16. [id number] 1965 Unknown [id number] 2.16. [id number] Social History Date Type Detail Facility Start: 06-05-2018 End: 12-25-2022 Tobacco smoking status IAIS Never smoked tobacco [facility] Start: 06-05-2018 End: 03-29-2023 Tobacco use and exposure Smokeless tobacco non-user [facility] Start: 1965 Sex Assigned At Not on file [facility] Start: 03-29-2023 [facility] Start: 03-31-1983 End: 03-31-1989 History of tobacco use Current smoker [facility] Start: 03-31-1983 End: 03-31-1989 History of tobacco use Cigarette Smoker [facility] Start: 03-29-2023 End: 05-18-2023 Cigarettes smoked current (pack per day) - Reported 0.8 [facility] Start: 03-29-2023 End: 05-18-2023 Alcohol intake Current drinker of alcohol (finding) [facility] Start: 03-29-2023 End: 05-18-2023 Tobacco use panel [facility] Start: 10-26-2021 Alcohol Comment 0-2 drinks qd [facility] Start: 03-31-2018 Gender identity Identifies as female gender (finding) [facility] Medical Equipment Procedure Code Equipment Code Equipment Origin al Text Equipment Identifier [facility]ates [facility] - [id number] Start: 04-26-2023 Clinical Notes 06-13-2022 to 10-06-2023 Jane Page MD - 10/06/2023 9:30 AM Lisa Priest DPM - 04/11/2023 8:15 AM Suzy Brar APRN-STEVEDORING SUPERVISOR - 03/29/2023 11:00 AM Jerel Melendrez APRN.[facility] - 06/14/2022 1:41 PM EDT Note Date & Type Note Facility 10-06-2023 History of Present illness Narrative Chief Complaint Patient presents with Left Hip - Pain Jeff hip Pain Lft side is worse 2/10 can go up to 7/10. Rt side pain gets up to a 5/10. Pain increases with movement and sitting. Pain decreases with Advil but does not help that much. Did do PT, No inj., no surgery, no assistive devices. Right Hip - Pain HISTORY OF PRESENT ILLNESS Chayo Powell is a 58 y.o. female who presents today as a new patient for bilateral hip pain. Mechanism of injury: NKI. Bilateral hip groin pain which is worse with activity and sitting. Worsening over the last 5 years, unable to participate in hiking like she would like to. Has completed PT for this, finished in early 08/2023, some benefit but still significant symptoms. Prior history of related problems: no prior problems with this area in the past. Previous history of evaluation for this problem: yes - primary care office, unable to see records Previous imaging for this problem: none available Treatments tried: ibuprofen (not very helpful) XR JEFF HIP 10/06/2023 My independent review of imaging shows no fractures, normal alignment, and moderate bilateral hip osteoarthritis with CAM morphology . ROS No fever or chills. No rashes. No difficulty breathing, cough, wheeze or shortness of breath. No chest pain, pressure or palpitations. Normal bowel movements. Normal urination. No numbness or tingling. No other joint problems. PAST MEDICAL HISTORY Past medical, surgical, and social histories have been reviewed and updated with the patient today and are located elsewhere in the medical record. PHYSICAL EXAM BP 141/90 (BP Location: Right arm, BP Position: Sitting) Pulse 85 Ht 1.689 m (5' 6.5 ) Wt 74.1 kg (163 lb 4.8 oz) SpO2 100% BMI 25.96 kg/m Smoking Status Former Right Hip Exam Tenderness The patient is experiencing no tenderness. Range of Motion Flexion: 120 abnormal External rotation: normal Internal rotation: 10 abnormal Muscle Strength Abduction: 4/5 Flexion: 5/5 Tests REJI: negative Other Sensation: normal Comments: Log roll test positive Straight legged hip flexion against resistance at neutral position negative FADIR/impingement testing positive One legged squat with mild instability, hip drop, and knee valgus. Left Hip Exam Tenderness The patient is experiencing no tenderness. Range of Motion Flexion: 120 abnormal External rotation: normal Internal rotation: 10 abnormal Muscle Strength Abduction: 4/5 Flexion: 5/5 Tests REJI: negative Other Sensation: normal Comments: Log roll test positive Straight legged hip flexion against resistance at neutral position negative FADIR/impingement testing positive One legged squat with mild instability, hip drop, and knee valgus. ASSESSMENT AND PLAN ICD-10-CM 1. Arthritis of right hip M16.11 XR HIP RIGHT 2-3 VIEWS AMB REFERRAL TO ORTHOPAEDIC SURGERY Meloxicam 15 MG tablet 2. Arthritis of left hip M16.12 XR HIP LEFT 2-3 VIEWS AMB REFERRAL TO ORTHOPAEDIC SURGERY Meloxicam 15 MG tablet - Discussed the diagnoses, prognosis, and orders with the patient in detail at today's visit. Bilateral hip osteoarthritis which is interfering with exercise and daily activities. Trial of alternative prn nsaid, meloxicam prescribed (chem labs reviewed and creatine/GFR appropriate for nsaid use). Ref to joint replacement team to discuss ERIC. Discussed as needed US hip steroid injections, she will mychart me if needed. - Independently reviewed imaging with patient - Activity/exercise restrictions discussed with patient. Specific restrictions include: as nicole - Discussed other modalities including: ice no, elevation no, bracing no, meds prn - Referral to PT no - Referral to specialist yes - Further imaging ordered no Follow up with specialist. The following components were considered to establish the complexity of medical decision making and level of care: new diagnosis(es), Review of current imaging, Imaging orders, referral(s), and initiation of new medications. Based on the above today's encounter is considered: Moderate Complexity: 19291/66078. documented in this encounter [facility] 04-11-2023 History of Present illness Narrative CHIEF COMPLAINT: Chief Complaint Patient presents with Left Foot - New Patient Pt c/o b/l bunions, pt would like to discuss all treatment options. L worse than R, can be painful at times. Right Foot - New Patient HPI: Chayo Powell is a 57 y.o. female who presents [...] for this visit. PHYSICAL EXAM: General: Chayo Powell is seated comfortably in the examination room. She is alert and oriented to time and place. In no acute distress. Mood and affect are normal and appropriate to situation. She presents well developed, well-nourished female. She presents ambulating in shoe gear. Neurological: Protective sensation is normal when tested with 5.07 [place] Kat monofilament bilaterally. Epicritic sensation intact. Dermatological: [...] DIP joints bilaterally. Calcaneal enthesopathy. SSMENT: Chayo Powell is a 57 y.o. female who presents [...] foot inserts -stiff shoes with rocker bottom -[facility] voltaren gel -Briefly discussed surgical intervention with [...] orthosis for greater than 9 months. An cfm-fej-swajo design will not adequately meet their needs [...] custom fabricated orthosis. documented in this encounter [facility] 03-29-2023 History of Present illness Narrative [...] bladder scanner. Radiographic Studies None Assessment Ms. Powell is a 57 y.o. female with the [...] agent ROBERTO Adams documented in this encounter [facility] 12-25-2022 Note HNO ID: [id number] Author: RT Steffen(R) Service: Nuclear Medicine Author Type: Technologist Type: Progress Notes Filed: 12/25/2022 9:49 AM Note Text: Radiology Service Progress Note PATIENT NAME: Chayo Powell DATE OF SERVICE: December 25, 2022 TIME: [...] RT Steffen(R) December 25, 2022 9:43 AM [facility] 12-25-2022 Miscellaneous Notes Patient given results and verbalized understanding of instructions given. Rozina Ventura No abnormal findings on x-ray. Continue supportive therapies as discussed. Eloisa Carter APRN.CNP documented in this encounter [facility] 12-25-2022 Note HNO ID: [id number] Author: Eloisa Carter APRN.CNP Service: ? Author [...] of care. This note was generated using [employer] software. It may contain errors in wording, punctuation, or spelling. Eloisa Carter APRN.[place] [facility] 06-14-2022 Note HNO ID: [id number] Author: Lisa Melendrez APRN.[place] Service: ? Author Type: Nurse Practitioner Type: Progress Notes Filed: 06/14/2022 1:43 PM Note Text: Could not connect on [employer] Platform. Visit cancelled. Lisa Melendrez DNP, PRABHA-[place] [facility] 06-14-2022 History of Present illness Narrative Could not connect on [employer] Platform. Visit cancelled. Lisa Melendrez DNP, TELEVISION MECHANIC-[place] documented in this encounter [facility] 06-13-2022 Note HNO ID: [id number] Author: Lisa Melendrez APRN.CNP Service: ? Author Type: Nurse Practitioner Type: Progress Notes Filed: 06/14/2022 1:47 PM Note Text: June 13, 2022 Chayo Powell 1965 VIRTUAL VISIT PROGRESS NOTE This is [...] Department as necessary. Platform patient seen on: [employer] platform Location of patient: [place] Powell is a 56 year old female seen [...] UTI is more (more content not included)... [facility] 06-13-2022 Instructions Lisa Melendrez APRN.STEVEDORING SUPERVISOR - 06/13/2022 3:20 PM EDT UTI Instructions [...] or as directed. documented in this encounter [facility] 06-13-2022 History of Present illness Narrative Images from the original note were not included. June 13, 2022 Chayo Powell 1965 VIRTUAL VISIT PROGRESS NOTE This is [...] Department as necessary. Platform patient seen on: [employer] platform Location of patient: [place] Powell is a 56 year old female seen [...] would like to continue care with a [facility] Virtual Primary Care physician, please ask your provider to place a Establish Primary Care order. Use Access Information Management to manage your care, wherever you are, 21/03, on your mobile device or computer. Access Information Management connects you to [employer] so you can access all your health information in one place and also schedule and request virtual appointments with primary care providers. 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) [facility] Diagnosis Bilateral bunions Bunion 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) [facility] Diagnosis Arthritis of right hip- Primary Arthritis of left hip Bilateral hip pain Pain in joint, pelvic region and thigh Bilateral hip pain Pain in joint, pelvic region and thigh [facility] Diagnosis Bilateral hip pain Pain in joint, pelvic region and thigh [facility] Diagnosis Bilateral hip pain Pain in joint, pelvic region and thigh [facility]narrative[facility] Consultation (Routine) - New Request Specialty Diagnoses / Procedures Referred By Misael donis Referred To Contact Orthopaedic Surgery Diagnoses Arthritis of right hip Arthritis of left hip Jane Page MD [address] [place] [address] Referral ID Status Reason Start Date Expiration Date V isits Requested Visits Authorized [id number] New Request 10/06/2023 10/30/2024 1 1 * Diagnostic X-Ray (Routine) - Pending Review Specialty Diagnoses / Procedures Referred By Misael donis Referred To Contact Diagnoses Arthritis of left hip Procedures XR HIP LEFT 2-3 VIEWS CHG RADEX HIP UNILATERAL WITH PELVIS 2-3 VIEWS Erlinda Garvey, ATC Referral ID Status Reason Start Date Expiration Date V isits Requested Visits Authorized [id number] Pending Review 10/06/2023 10/30/2024 1 1 [facility] Summary Purpose Family History No Family History Records FoundNo Family History Records FoundNo Family History Records Found Advance Directives No Advanced Directives Records FoundNo Advanced Directives Records FoundNo Advanced Directives Records Found Reason for Referral Specialty Diagnoses / Procedures Referred By Contac t Referred To Contact Diagnoses Hallux rigidus, bilateral Bilateral foot pain Procedures XR FOOT LEFT 3 VIEWS [place] X-RAY FOOT 3+ VW Marshall Priest, DPM [address] [place] [phone] Referral ID Status Reason Start Date Expiration Date V isits Requested Visits Authorized [id number] Pending Review 04/11/2023 05/05/2024 1 1 Specialty Diagnoses / Procedures Referred By Contac t Referred To Contact Diagnoses Hallux rigidus, bilateral Bilateral foot pain Procedures XR FOOT RIGHT 3 VIEWS MO X-RAY FOOT 3+ VW LabrooMarshall, DPM [address] [place] [phone] Referral ID Status Reason Start Date Expiration Date V isits Requested Visits Authorized [id number] Pending Review 04/11/2023 05/05/2024 1 1 Specialty Diagnoses / Procedures Referred By Contac t Referred To Contact Diagnoses Arthritis of left hip Procedures XR HIP LEFT 2-3 VIEWS CHG RADEX HIP UNILATERAL WITH PELVIS 2-3 VIEWS Erlinda Garvey ATC Referral ID Status Reason Start Date Expiration Date V isits Requested Visits Authorized [id number] Pending Review 10/06/2023 10/30/2024 1 1 Additional Source Comments INFORMATION SOURCE (unrecogn ized section and content) DATE CREATED AUTHOR AUTHOR'S ORGANIZ ATION 12/25/2022 [facility] DATE CREATED AUTHOR AUTHOR'S ORGANIZ ATION 05/20/2023 [facility] Source Comments (unrecognize d section and content) In the event this informatio n is protected by the Federal Confidentiality of Alcohol and Drug Abuse Patient Records regulations: The Federal rules restrict any use of the information to criminally investigate or prosecute any alcohol or drug abuse patient.[facility] the event this information is protected by the Federal Confidentiality of Alcohol and Drug Abuse Patient Records regulations: The Federal rules restrict any use of the information to criminally investigate or prosecute any alcohol or drug abuse patient.[facility] the event this information is protected by the Federal Confidentiality of Alcohol and Drug Abuse Patient Records regulations: The Federal rules restrict any use of the information to criminally investigate or prosecute any alcohol or drug abuse patient.[facility] Reason for Visit (unrecogniz ed section and content) Reason Comments UTI Reason Comments Results Reason Comments New Patient Reason Comments New Patient Pt c/o b/l bunions, pt would like to discuss all treatment options. L worse than R, can be painful at times. New Patient Specialty Diagnoses / Procedures Referred By Misael t Referred To Contact Diagnoses Hallux rigidus, bilateral Bilateral foot pain Procedures XR FOOT LEFT 3 VIEWS [place] X-RAY FOOT 3+ VW Marshall Priest DPM [address] [place] [address] Referral ID Status Reason Start Date Expiration Date V isits Requested Visits Authorized [id number] Pending Review 04/11/2023 05/05/2024 1 1 Specialty Diagnoses / Procedures Referred By Misael donis Referred To Contact Diagnoses Hallux rigidus, bilateral Bilateral foot pain Procedures XR FOOT RIGHT 3 VIEWS [place] X-RAY FOOT 3+ VW Labroo, Marshall A, DPM [address] [place] [address] Referral ID Status Reason Start Date Expiration Date V isits Requested Visits Authorized [id number] Pending Review 04/11/2023 05/05/2024 1 1 Reason Comments Pain Jeff hip Pain Lft nargis e is worse 2/10 can go up to 7/10. Rt side pain gets up to a 5/10. Pain increases with movement and sitting. Pain decreases with Advil but does not help that much. Did do PT, No inj., no surgery, no assistive devices. Pain Specialty Diagnoses / Procedures Referred By Contac t Referred To Contact Diagnoses Arthritis of left hip Procedures XR HIP LEFT 2-3 VIEWS CHG RADEX HIP UNILATERAL WITH PELVIS 2-3 VIEWS Erlinda Garvey, ATC Referral ID Status Reason Start Date Expiration Date V isits Requested Visits Authorized [id number] Pending Review 10/06/2023 10/30/2024 1 1 Care Teams (unrecognized sec tion and content) Information Security Systems Instructor Relationship Specialty Start Date End Date Dania Rubalcava MD [address] [phone] PCP - General Internal Medicine 10/26/21 Information Security Systems Instructor Relationship Specialty Start Date End Date Dania Rubalcava MD [address] [phone] PCP - General Internal Medicine 10/26/21 Information Security Systems Instructor Relationship Specialty Start Date End Date Dania Rubalcava MD [address] [phone] PCP - General Internal Medicine 10/26/21 Information Security Systems Instructor Relationship Specialty Start Date End Date Dania Rubalcava MD [address] [phone] PCP - General Internal Medicine 10/26/21 Information Security Systems Instructor Relationship Specialty Start Date End Date Dania Rubalcava MD [address] [phone] PCP - General Internal Medicine 10/26/21 FOR [...] BE BASED ON THE PRIMARY CLINICAL RECORDS. [employer] provides no warranty or guarantee of the accuracy or completeness of information in this document.
[2023-10-10 15:36] LABS: Absolute Lymphocyte Count 0.89 X10^3/uL (0.83-4.51); Absolute Neutrophil Count 3.5 X10^3/uL (2.0-7.7); Basophil# 0.03 X10^3/uL; Basophil% 0.6 % (0-1); Eosinophil# 0.07 X10^3/uL; Eosinophils% 1.4 % (0-5); Hematocrit 36.7 % (37-47); Hemoglobin 12.5 g/dL (12.0-15.0); Lymphocyte # 0.89 X10^3/ul (0.83-4.51); Lymphocyte % 17.7 % (19-41); Mean Corp Hgb Conc 34.1 g/dL (32-36); Mean Corpuscular Hgb 32.6 pg (27.0-32.0); Mean Corpuscular Volume 95.6 fL (81-99); Mean Platelet Vol. 9.7 fl (6.2-12.0); Monocyte# 0.49 X10^3/uL; Monocyte% 9.7 % (0-10); NRBC Flagged by Analyzer 0 % (0-5); Neutrophil # 3.54 X10^3/uL (2.7-7.7); Neutrophil % 70.2 % (47-70); Platelet Count 319 K/mm3 (150-450); RBC Distribution Width CV 11.8 % (11.6-14.6); RBC Distribution Width SD 40.9 fl (35.1-43.9); Red Blood Count 3.84 M/mm3 (4.2-5.4)
[2023-10-10 15:43] LABS: Anion Gap 7 (5-15); BUN 15 mg/dL (7-18); BUN/Creat Ratio 23.2 RATIO (10-20); Calcium,Total 10.2 mg/dL (8.5-10.1); Chloride 102 mmol/L (98-107); Creatinine, Serum 0.65 mg/dL (0.55-1.02); EST Glomerular Filtration Rate 100 mL/min (>60); Est Glom Filt Rate - Afr Amer 121 mL/min (>60); Glucose 113 mg/dL (74-106); Potassium 4.1 mmol/L (3.5-5.1); Sodium Level 138 mmol/L (136-145)
== END | disposition home or self-care (01) ==
LOC: BIMLAB 11:57
PROVIDERS: PCP Internal Medicine; Referring Provider Internal Medicine; Visit Provider Internal Medicine
DX: I10 Essential (primary) hypertension (principal); F41.9 Anxiety disorder, unspecified; F32.A Depression, unspecified
CPT/HCPCS: 36415; 80048; 85025

== ENCOUNTER 2023-11-01 15:41 | Outpatient (CLI) | payer OTHER, SELFPAY | END 2023-11-01 23:59 | disposition home or self-care (01) | PROVIDERS: PCP Internal Medicine; Visit Provider Nurse Practitioner | DX: J06.9 Acute upper respiratory infection, unspecified (principal); R05.9 Cough, unspecified | CPT/HCPCS: 87631 ==

== ENCOUNTER → 2024-12-06 | Outpatient (CLI) | payer OTHER, SELFPAY ==
--- NOTE | 2024-12-06 08:00 | BI_ITS ---
EXAM: SCRN MAMM (CAD)W/ANAHI BILAT 12/06/2024 CLINICAL HISTORY: F, Age 59 y/o, BREAST. CANCER SCREENING TECHNIQUE: Bilateral screening digital breast tomosynthesis with 2D and 3D images. Computer aided detection. COMPARISON: Prior exam(s) dated 09/01/2023, 08/13/2021. FINDINGS: TISSUE DENSITY: The breast tissue is composed of scattered area of fibroglandular density. Bilateral Breast Mammographic Findings: There are bilateral retropectoral saline implants. No significant masses, calcifications or other abnormalities are identified. BI/SCRN MAMM (CAD)W/ANAHI BILAT IMPRESSION: Right Breast: BIRADS 1 NEGATIVE. Left Breast: BIRADS 1 NEGATIVE. OVERALL FINAL ASSESSMENT: BIRADS 1 NEGATIVE. RECOMMENDATION: Routine annual follow-up in 1 Year A letter with findings and recommendations will be mailed to the patient. Reading Location: [id number]
== END | disposition home or self-care (01) ==
LOC: OPBI 08:06
PROVIDERS: PCP Internal Medicine; Referring Provider Physician Assistant; Visit Provider Physician Assistant
DX: Z12.31 Encounter for screening mammogram for malignant neoplasm of breast (principal)
CPT/HCPCS: 77063; 77067